=== PATIENT | female | born 1960 | race Caucasian/White ===

== ENCOUNTER → 2024-01-21 | Outpatient (CLI) | payer MEDICARE ==
--- NOTE | 2024-01-22 07:41 | MR ---
EXAMINATION TYPE: MR cspine/tspine wo/w con DATE OF EXAM: 01/21/2024 COMPARISON: None HISTORY: Lung cancer, neck pain, mid back pain. CONTRAST: Performed utilizing 6 mL intravenous Gadavist gadolinium contrast. TECHNIQUE: Multiplanar multiecho imaging on a 3.0 Joaquina magnet is performed through the cervical spin e. FINDINGS: The craniovertebral junction is normal. Vertebral body alignment has mild kyphosis within the upper portion. There is diminished signal within the dens and upper portion of the C2 vertebral body on T1-weighted sequences. This is a heterogenous appearance on T2-weighted sequences. Findings are suspicious for me tastatic lesion. C7-T1: No focal disc herniation or significant disc bulge is evident. No spinal canal stenosis or n eural foraminal stenosis is present. C6-7: Left paracentral to left lateral disc bulge is present with mild anterior thecal sac compressio n. This may contact the exiting nerve root. Correlate with left radicular symptoms. No spinal canal s tenosis is present. Narrowing of the left foramen is present. C5-6: Small left and right paracentral disc bulge is present with mild anterior thecal sac compressio n comes in close approximation with the spinal cord. Bilateral foraminal narrowing is present.. C4-5: Mild central and left paracentral disc bulges are present with mild anterior thecal sac carlito terra. No AP spinal canal stenosis is present. There is close approximation with the spinal cord. Bila teral foraminal stenosis is present. C3-4: There is a small central protrusion with mild anterior thecal sac compression. No spinal canal stenosis is present. No cord contact is evident. Moderate left foraminal narrowing is present. Right foramen is patent. C2-3: Mild central bulge is present without cord contact. This is mild thecal sac compression. Neural foramen are patent. Note is made of a right apical opacification. Following contrast administration there is enhancement through this region. Underlying mass should be considered. IMPRESSION: 1. Abnormal signal within the dens and proximal C2 vertebral body can be compatible with a metastatic lesion. 2. Advanced degenerative disc changes with narrowing of disc height and some residual disc bulging di scussed above. 3. Multilevel Foraminal stenosis. Disc bulging may be impinging the C6-7 left foramen. EXAMINATION TYPE: MR cspine/tspine wo/w con DATE OF EXAM: 01/21/2024 COMPARISON: None HISTORY: Lung cancer, neck pain, mid back pain. CONTRAST: Performed utilizing 6 mL intravenous Gadavist gadolinium contrast. TECHNIQUE: Multiplanar, multiecho imaging on a 3.0 Joaquina magnet is performed through the thoracic spi ne. Spinal cord maintains normal signal through its visualized course. Vertebral body alignment is normal. Vertebral body heights are preserved. Disc heights are preserved. No signal abnormality within the vertebral bodies is evident Disc hydration levels are preserved. No spinal canal stenosis is evident. Following contrast, no abnormal enhancement is evident. Right apical mass is present. IMPRESSION: 1. No acute MRI abnormality within the thoracic spine. 2. Right apical lung mass
== END | disposition home or self-care (01) ==
LOC: RADMRIMAIN 17:06
PROVIDERS: ATTEND Internal Medicine Hematology & Oncology
DX: M99.71 Connective tissue and disc stenosis of intervertebral foramina of cervical region (principal); C34.11 Malignant neoplasm of upper lobe, right bronchus or lung; M50.321 Other cervical disc degeneration at C4-C5 level; M50.31 Other cervical disc degeneration, high cervical region; M50.323 Other cervical disc degeneration at C6-C7 level; M54.50 Low back pain, unspecified; R91.8 Other nonspecific abnormal finding of lung field
CPT/HCPCS: 72156; 72157; A9585

== ENCOUNTER → 2024-06-25 | Outpatient (CLI) | payer MEDICARE ==
--- NOTE | 2024-06-26 09:55 | CA ---
Transthoracic Echo Report Name: Kirti Cohen Age: 64 Gender: F : 1960 Exam Date: 06/25/2024 11:29 Exam Location: [facility] Ht (in): 60 Wt (lb): 132 Ordering Physician: Naomi Cadet MD Attending/Referring Phys: [employer] President Rosaura Gauthier RDCS Procedure CPT: Indications: C34.11 lung ca Cardiac Hx: Technical Quality: Fair Contrast 1: Total Dose (mL): Contrast 2: Total Dose (mL): MEASUREMENTS (Male / Female) Normal Values 2D ECHO LV Diastolic Diameter PLAX 4.9 cm 4.2 - 5.9 / 3.9 - 5.3 cm LV Systolic Diameter PLAX 3.5 cm IVS Diastolic Thickness 0.9 cm 0.6 - 1.0 / 0.6 - 0.9 cm LVPW Diastolic Thickness 0.7 cm 0.6 - 1.0 / 0.6 - 0.9 cm LV Relative Wall Thickness 0.3 RV Internal Dim ED PLAX 3.1 cm LVOT Diameter 1.4 cm LA Volume 62.6 cm??? 18 - 58 / 22 - 52 cm??? LA Volume Index 39.0 cm???/m??? 16 - 28 cm???/m??? M-MODE Aortic Root Diameter MM 2.9 cm LA Systolic Diameter MM 3.7 cm LA Ao Ratio MM 1.3 AV Cusp Separation MM 2.1 cm DOPPLER AV Peak Velocity 153.5 cm/s AV Peak Gradient 9.4 mmHg AV Mean Velocity 108.7 cm/s AV Mean Gradient 5.2 mmHg AV Velocity Time Integral 29.8 cm MV Area PHT 4.4 cm??? Mitral E Point Velocity 107.6 cm/s Mitral A Point Velocity 85.6 cm/s Mitral E to A Ratio 1.3 MV Deceleration Time 170.7 ms MV E' Velocity 10.4 cm/s Mitral E to MV E' Ratio 10.3 TR Peak Velocity 251.7 cm/s TR Peak Gradient 25.3 mmHg Right Ventricular Systolic Press 28.7 mmHg FINDINGS Left Ventricle Normal Left ventricular size, wall thickness, systolic function with no obvious regional wall motion abnormalities. Normal Left ventricular diastolic filling pattern. Left ventricular ejection fraction is estimated at 55-60 %. Normal left heart strain noted. Right Ventricle Normal right ventricular size and function. Right ventricular systolic pressure within normal limits. Right Atrium Normal right atrial size. Left Atrium Mildly increased left atrial volume. Mitral Valve Structurally normal mitral valve. Mild mitral annular calcification. Mild mitral regurgitation. Aortic Valve Trileaflet aortic valve. No aortic valve stenosis or regurgitation. Aortic valve sclerosis. Tricuspid Valve Structurally normal tricuspid valve. Mild tricuspid regurgitation. Pulmonic Valve Structurally normal pulmonic valve. Trace pulmonic regurgitation. Pericardium No pericardial effusion. Aorta Normal size aortic root and proximal ascending aorta. CONCLUSIONS Diagnosis: Lung cancer, baseline LV and RV function prior to chemotherapy and evaluation of pericardium Normal LV size and systolic function, left ventricular ejection fraction 55%. No wall motion abnormalities Normal RV size and function Prominent posterior lateral pericardial stripe consistent with possible pericarditis in the past No pericardial effusion Previewed by: Dr. Dariusz Lara MD (Electronically Signed) Final Date: 26 June 2024 09:53
== END | disposition home or self-care (01) ==
LOC: RADECHMAIN 11:17
PROVIDERS: ATTEND Internal Medicine Hematology & Oncology
DX: Z01.818 Encounter for other preprocedural examination
CPT/HCPCS: 93306

== ENCOUNTER → 2024-07-27 | Outpatient (CLI) | payer MEDICARE ==
--- NOTE | 2024-07-27 16:09 | MR ---
EXAMINATION TYPE: MR brain wo/w con DATE OF EXAM: 07/27/2024 COMPARISON: CT 02/19/2024 HISTORY: 64-year-old female Lung cancer. C34.11 MALIGNANT NEOPLASM OF UPPER LOBE, RIGHT BRO TECHNIQUE: Multiplanar, multisequence images of the brain and brainstem were acquired before and aft er administration of 6 mL IV Gadavist. Diffusion weighted imaging is performed. FINDINGS: No evidence for acute infarction, hemorrhage, mass, mass effect, midline shift, herniation, effacemen t of basal cisterns, or extra-axial fluid collection. The ventricles and sulci are age-appropriate. Asymmetric right lateral ventricle likely anatomic vari ation. Major intracranial flow voids are intact. T2/FLAIR weighted sequences show mild scattered bright signal change in the periventricular, subcorti amy regions of both cerebral hemispheres. Additional foci left paramedian theresa. Findings suggest equity trader nicholas small vessel ischemic disease changes. Midline structures demonstrate normal morphology. The craniocervical junction is normal. Post contrast images demonstrate no evidence of pathologic enhancement. Dural venous sinuses are pat ent. Mild mucosal thickening ethmoid air cells. The globes are intact. Bone marrow placement with corresponding patchy enhancement involving the body of C2 vertebra. IMPRESSION: 1. No acute intracranial abnormality or enhancing lesions to suggest brain metastases. Known bone met astasis to the body of the C2 vertebra. 2. Mild burden of chronic small vessel ischemic disease. 3. Mild chronic ethmoid sinus disease. [facility], , 07/27/2024 4:07 PM
== END | disposition home or self-care (01) ==
LOC: RADMRIMAIN 13:22
PROVIDERS: ATTEND Internal Medicine Hematology & Oncology
CPT/HCPCS: 70553

== ENCOUNTER → 2024-09-04 | Outpatient (CLI) | payer MEDICARE ==
[2024-09-04 15:32] LABS: HCT 27.5 % (37.2-46.3); HGB 8.6 g/dL (12.0-15.0); MCH 27.7 pg (27.0-32.0); MCHC 31.3 g/dL (32.0-37.0); MCV 88.4 FL (80.0-97.0); Mean Platelet Volume 8.2 FL (9.5-12.2); NRBC Per 100 WBC 0 X 10*3/uL (0.00-0.01); Platelet Count 537 X 10*3/uL (140-440); RBC 3.11 X 10*6/uL (4.10-5.20); RDW 15.6 % (11.5-14.5); WBC 17.27 X 10*3/uL (4.50-10.00)
[2024-09-04 15:47] LABS: ALT 13 U/L (8-44); AST 23 U/L (13-35); Albumin 3.3 g/dL (3.8-4.9); Albumin/Globulin Ratio 1.06 Ratio (1.60-3.17); Alkaline Phosphatase 132 U/L (41-126); BUN/Creat Ratio 20.12 Ratio (12.00-20.00); Blood Urea Nitrogen 16.1 mg/dL (9.0-27.0); Calcium 9.1 mg/dL (8.7-10.3); Carbon Dioxide 22.1 mmol/L (21.6-31.8); Chloride 97 mmol/L (96-109); Chol/HDL Ratio 3.84 Ratio; Globulin 3.1 g/dL (1.6-3.3); Glucose 92 mg/dL (70-110); LDL Cholesterol,Calculated 85.5 mg/dL (0.0-131.0); Potassium 4.3 mmol/L (3.5-5.5); Sodium 133 mmol/L (135-145); Total Bilirubin 0.8 mg/dL (0.3-1.2); Total Protein 6.4 g/dL (6.2-8.2); VLDL Calculation 18.78 mg/dL (5.00-40.00)
[2024-09-04 19:16] LABS: NT-Pro-B-Type Natriuretic Pept 161 pg/mL (0-125)
== END | disposition home or self-care (01) ==
LOC: LABWHC1 09:08
PROVIDERS: ATTEND Student in an Organized Health Care Education/Training Program
DX: D72.9 Disorder of white blood cells, unspecified (principal); R79.89 Other specified abnormal findings of blood chemistry; E11.9 Type 2 diabetes mellitus without complications; E78.5 Hyperlipidemia, unspecified; Z13.6 Encounter for screening for cardiovascular disorders; E03.9 Hypothyroidism, unspecified
CPT/HCPCS: 36415; 80053; 80061; 83036; 83880; 84443; 84484; 85027

== ENCOUNTER 2024-10-06 10:36 | Emergency (ER) | payer MEDICARE ==
--- NOTE | 2024-10-06 11:08 | ED ---
Recheck HPI - General Chief Complaint: Recheck/Abnormal Lab/Rx Stated Complaint: abn labs Time Seen by Provider: 10/06/24 11:00 Source: patient, RN notes reviewed Mode of arrival: ambulatory Limitations: no limitations - History of Present Illness Initial Comments: This is a 64-year-old female with stage IV lung cancer currently on chemo infusion, follows with Dr. Cadet, presented to emergency department for abnormal labs. Patient states that she had lab work drawn yesterday which revealed a hemoglobin of 6.2. She states that over the past week she has been experiencing dyspnea on exertion, fatigue, lethargy. She denies chest pain, shortness of br eath, difficulty breathing, abdominal pain, nausea, vomiting. Denies melena, hematochezia, hematuria, hematemesis or coffee-ground emesis. States that she has frequent blood draws with her oncologist outpatient and her hemoglobin has been trending downward. Denies previous history of blood transfusions. Patient does receive intermittent radiation for her lung cancer treatment. - Related Data Allergies Allergy/AdvReac Type Severity Reaction Status Date / Time No Known Allergies Allergy Verified 10/06/24 10:52 Review of Systems ROS Statement: Those systems with pertinent positive or pertinent negative responses have been documented in the HPI. ROS Other: All systems not noted in ROS Statement are negative. Past Medical History Past Medical History: Cancer Additional Past Medical History / Comment(s): Lung Ca Additional Past Surgical History / Comment(s): Netta 2004 Smoking Status: Former smoker Past Alcohol Use History: None Reported Past Drug Use History: Marijuana General Exam Limitations: no limitations Eye exam: Present: normal appearance, PERRL, EOMI. Absent: scleral icterus, conjunctival injection, periorbital swelling Neck exam: Present: normal inspection. Absent: tenderness, meningismus, lymphadenopathy Respiratory exam: Present: normal lung sounds bilaterally. Absent: respiratory distress, wheezes, rales, rhonchi, stridor Cardiovascular Exam: Present: regular rate, normal rhythm, normal heart sounds. Absent: systolic murmur, diastolic murmur, rubs, gallop, clicks GI/Abdominal exam: Present: soft, normal bowel sounds. Absent: distended, tenderness, guarding, rebound, rigid Extremities exam: Present: normal inspection, full ROM, normal capillary refill. Absent: tenderness, pedal edema, joint swelling, calf tenderness Skin exam: Present: warm, dry, intact, normal color. Absent: rash Course Vital Signs 10/06/24 10/06/24 10/06/24 10:52 13:54 13:57 Temperature 98.5 F 99.3 F 99.3 F Pulse Rate 92 87 79 Respiratory 18 18 18 Rate Blood Pressure 103/62 119/67 105/84 O2 Sat by Pulse 100 99 99 Oximetry 10/06/24 10/06/24 10/06/24 14:12 14:32 15:48 Temperature 99 F 99.3 F 98.9 F Pulse Rate 78 78 80 Respiratory 18 20 18 Rate Blood Pressure 103/56 101/49 98/55 O2 Sat by Pulse 98 98 Oximetry Medical Decision Making - Medical Decision Making Was pt. sent in by a medical professional or institution ([facility], [facility], urgent care, hospital, or group home...) When possible be specific @ -No Did you speak to anyone other than the patient for history (EMS, parent, family, police, friend...)? What history was obtained from this source @ -No Did you review nursing and triage notes (agree or disagree)? Why? @ -I reviewed and agree with nursing and triage notes Were old charts reviewed (outside hosp., previous admission, EMS record, old EKG, old radiological studies, urgent care reports/EKG's, group home records)? Report findings @ -No old charts were reviewed Differential Diagnosis (chest pain, altered mental status, abdominal pain women, abdominal pain men, vaginal bleeding, weakness, fever, dyspnea, syncope, headache, dizziness, GI bleed, back pain, seizure, CVA, palpatations, mental hea lth, musculoskeletal)? @ -Differential Weakness: Hypoglycemia, shock, sepsis, hyponatremia, anemia, infection, [place], ETOH, adverse medicine reaction, overdose, stroke, this is not meant to be an all-inclusive list. EKG interpreted by me (3pts min.). @ -Completed at 1131 sinus rhythm with a ventricular to 76, IN interval 133, QRS 81, QTc 369. X-rays interpreted by me (1pt min.). @ -None done CT interpreted by me (1pt min.). @ -None done U/S interpreted by me (1pt. min.). @ -None done What testing was considered but not performed or refused? (CT, X-rays, U/S, labs)? Why? @ -None What meds were considered but not given or refused? Why? @ -None Did you discuss the management of the patient with other professionals (professionals i.e. , PA, PR[employer]CTION [facility], lab, RT, psych nurse, social service director, corporate safety manager, te acher, commercial credit officer, immigration case worker)? Give summary @ -No Was smoking cessation discussed for >3mins.? @ -No Was critical care preformed (if so, how long)? @ -No Were there social determinants of health that impacted care today? How? (Homelessness, low income, unemployed, alcoholism, drug addiction, transportation, low edu. Level, literacy, decrease access to med. care, [facility], rehab)? @ -No Was there de-escalation of care discussed even if they declined (Discuss DNR or withdrawal of care, Hospice)? DNR status @ -No What co-morbidities impacted this encounter? (DM, HTN, Smoking, COPD, CAD, Cancer, CVA, ARF, Chemo, Hep., AIDS, mental health diagnosis, sleep apnea, morbid obesity)? @ -None Was patient admitted / discharged? Hospital course, mention meds given and route, prescriptions, significant lab abnormalities, going to OR and other pertinent info. @ -Discharge. 64-year-old female presenting with abnormal labs. Laboratory studies obtained reveal a hemoglobin of 6.8 and Hematocrit 20.9. CMP within normal limits. EKG sinus rhythm. There is no concern for active bleed at this time as there is no evidence of hematochezia, melena, hematemesis, coffee-ground emesis, hematuria. Patient is on blood thinners. Additionally, patient has had downward trending hemoglobin over the past few weeks has follow-up with her oncologist outpatient. She is provided with 1 unit of blood and instructed to follow-up closely with oncologist outpatient for continued evaluation. Discuss ed with Dr. Perkins Undiagnosed new problem with uncertain prognosis? @ -No Drug Therapy requiring intensive monitoring for toxicity (Heparin, Nitro, Insulin, Cardizem)? @ -No Were any procedures done? @ -No Diagnosis/symptom? @ -anemia of chronic disease, stage IV lung cancer Acute, or Chronic, or Acute on Chronic? @ -acute Uncomplicated (without systemic symptoms) or Complicated (systemic symptoms)? @ -uncomplicated Side effects of treatment? @ -No Exacerbation, Progression, or Severe Exacerbation? @ -No Poses a threat to life or bodily function? How? (Chest pain, [place], [place], pneumonia, PE, COPD, DKA, ARF, appy, cholecystitis, CVA, Diverticulitis, Homicidal, Suicidal, threat to staff... and all critical care pts) @ -No - Lab Data Result diagrams: 10/06/24 11:26 10/06/24 11:26 Lab Results 10/06/24 10/06/24 10/06/24 Range/Units 11:20 11:25 11:26 WBC 8.7 (3.8-10.6) k/uL RBC 2.27 L (3.80-5.40) m/uL Hgb 6.8 L* (11.4-16.0) gm/dL Hct 20.9 L (34.0-46.0) % MCV 92.1 (80.0-100.0) fL MCH 29.9 (25.0-35.0) pg MCHC 32.4 (31.0-37.0) g/dL RDW 19.9 H (11.5-15.5) % Plt Count 355 (150-450) k/uL MPV 8.2 Neutrophils % 75 % Lymphocytes % 13 % Monocytes % 6 % Eosinophils % 4 % Basophils % 0 % Neutrophils # 6.5 (1.3-7.7) k/uL Lymphocytes # 1.1 (1.0-4.8) k/uL Monocytes # 0.6 (0-1.0) k/uL Eosinophils # 0.3 (0-0.7) k/uL Basophils # 0.0 (0-0.2) k/uL Hypochromasia Slight Anisocytosis Slight Macrocytosis Slight PT (10.0-12.5) sec INR (<1.2) APTT (22.0-30.0) sec Sodium (137-145) mmol/L Potassium (3.5-5.1) mmol/L Chloride (98-107) mmol/L Carbon Dioxide (22-30) mmol/L Anion Gap mmol/L BUN (7-17) mg/dL Creatinine (0.52-1.04) mg/dL Est GFR (CKD-EPI)AfAm (>60 ml/min/1.73 sqM) Est GFR (CKD-EPI)NonAf (>60 ml/min/1.73 sqM) Glucose (74-99) mg/dL Calcium (8.4-10.2) mg/dL Magnesium (1.6-2.3) mg/dL Total Bilirubin (0.2-1.3) mg/dL AST (14-36) U/L ALT (4-34) U/L Alkaline Phosphatase (38-126) U/L Total Protein (6.3-8.2) g/dL Albumin (3.5-5.0) g/dL Blood Type A Positive Blood Type Confirm A Positive Blood Type Recheck No Previous Record Bld Type Recheck Status CABO Indicated Antibody Screen NEGATIVE Crossmatch See Detail Spec Expiration Date 10/09/2024 - 232510/06/24 10/06/24 Range/Units 11:26 11:26 WBC (3.8-10.6) k/uL RBC (3.80-5.40) m/uL Hgb (11.4-16.0) gm/dL Hct (34.0-46.0) % MCV (80.0-100.0) fL MCH (25.0-35.0) pg MCHC (31.0-37.0) g/dL RDW (11.5-15.5) % Plt Count (150-450) k/uL MPV Neutrophils % % Lymphocytes % % Monocytes % % Eosinophils % % Basophils % % Neutrophils # (1.3-7.7) k/uL Lymphocytes # (1.0-4.8) k/uL Monocytes # (0-1.0) k/uL Eosinophils # (0-0.7) k/uL Basophils # (0-0.2) k/uL Hypochromasia Anisocytosis Macrocytosis PT 12.2 (10.0-12.5) sec INR 1.1 (<1.2) APTT 24.6 (22.0-30.0) sec Sodium 136 L (137-145) mmol/L Potassium 3.7 (3.5-5.1) mmol/L Chloride 99 (98-107) mmol/L Carbon Dioxide 25 (22-30) mmol/L Anion Gap 12 mmol/L BUN 11 (7-17) mg/dL Creatinine 0.78 (0.52-1.04) mg/dL Est GFR (CKD-EPI)AfAm >90 (>60 ml/min/1.73 sqM) Est GFR (CKD-EPI)NonAf 80 (>60 ml/min/1.73 sqM) Glucose 107 H (74-99) mg/dL Calcium 9.2 (8.4-10.2) mg/dL Magnesium 2.0 (1.6-2.3) mg/dL Total Bilirubin 0.3 (0.2-1.3) mg/dL AST 13 L (14-36) U/L ALT 10 (4-34) U/L Alkaline Phosphatase 89 (38-126) U/L Total Protein 6.5 (6.3-8.2) g/dL Albumin 3.5 (3.5-5.0) g/dL Blood Type Blood Type Confirm Blood Type Recheck Bld Type Recheck Status Antibody Screen Crossmatch Spec Expiration Date Disposition Clinical Impression: Anemia, Low hemoglobin Disposition: HOME SELF-CARE Condition: Stable Instructions (If sedation given, give patient instructions): Anemia (ED) Additional Instructions: Please return to the Emergency Department if symptoms worsen or any other concerns. Is patient prescribed a controlled substance at d/c from ED?: No Referrals: Naomi Cadet MD [Primary Care Provider] - 1-2 days
[2024-10-06 11:32] LABS: Anisocytosis Slight; Basophils % (A) 0 %; Eosinophils # (A) 0.3 k/uL (0-0.7); Eosinophils % (A) 4 %; HCT 20.9 % (34.0-46.0); Hypochromasia Slight; Lymphocytes # (A) 1.1 k/uL (1.0-4.8); Lymphocytes % (A) 13 %; MCH 29.9 pg (25.0-35.0); MCHC 32.4 g/dL (31.0-37.0); MCV 92.1 fL (80.0-100.0); Macrocytosis Slight; Mean Platelet Volume 8.2; Monocytes # (A) 0.6 k/uL (0-1.0); Monocytes % (A) 6 %; Neutrophils # (A) 6.5 k/uL (1.3-7.7); Neutrophils % (A) 75 %; Platelet Count 355 k/uL (150-450); RBC 2.27 m/uL (3.80-5.40); RDW 19.9 % (11.5-15.5); WBC 8.7 k/uL (3.8-10.6)
[2024-10-06 11:40] LABS: HGB 6.8 gm/dL (11.4-16.0)
[2024-10-06 11:44] LABS: INR 1.1 (<1.2); Partial Thromboplastin Time 24.6 sec (22.0-30.0); Prothrombin Time 12.2 sec (10.0-12.5)
[2024-10-06 12:10] LABS: ALT 10 U/L (4-34); AST 13 U/L (14-36); African American GFR (CKD) >90 (>60 ml/min/1.73 sqM); Albumin 3.5 g/dL (3.5-5.0); Alkaline Phosphatase 89 U/L (38-126); Anion Gap 12 mmol/L; Blood Urea Nitrogen 11 mg/dL (7-17); Calcium 9.2 mg/dL (8.4-10.2); Carbon Dioxide 25 mmol/L (22-30); Chloride 99 mmol/L (98-107); Glucose 107 mg/dL (74-99); Non-African American GFR(CKD) 80 (>60 ml/min/1.73 sqM); Potassium 3.7 mmol/L (3.5-5.1); Sodium 136 mmol/L (137-145); Total Bilirubin 0.3 mg/dL (0.2-1.3); Total Protein 6.5 g/dL (6.3-8.2)
[2024-10-06 16:40] VITALS: BP 100/64
[2024-10-06 16:48] VITALS: PULSE 78; RESP 18; TEMP 99
== END 2024-10-06 16:46 | disposition home or self-care (01) ==
LOC: EC 10:36
DX: C34.90 Malignant neoplasm of unspecified part of unspecified bronchus or lung (principal); D63.0 Anemia in neoplastic disease; Z87.891 Personal history of nicotine dependence
CPT/HCPCS: 99284 ×2; 36430 ×2; 36415; 93005; 86900; 86901; 80053; 83735; 85025; 85610; 85730; 86850; 86920; P9016

== ENCOUNTER 2024-10-21 12:23 | Emergency (ER) | payer MEDICARE ==
--- NOTE | 2024-10-21 13:24 | XR ---
Chest, 2 view. HISTORY: Cough. COMPARISON: 06/19/2024 TECHNIQUE: PA and lateral views the chest are obtained. FINDINGS: The right upper lobe lung mass has increased in the interval from 5.7 x 6.9 centimeters to 6.2 x 7.5 cm. It is consistent with malignancy. Remainder of the lungs are stable and remain essentially clear. There is no pleural effusion or pneum othorax. The heart and vasculature are normal. The osseous structures are intact. IMPRESSION: Growing right upper lobe lung mass as described above. Findings highly suspicious for tejas plasm. [facility], , 10/21/2024 1:22 PM
--- NOTE | 2024-10-21 13:49 | ED ---
Fever HPI - General Chief Complaint: Fever Stated Complaint: coughing, wheezing, fever Time Seen by Provider: 10/21/24 12:40 Source: patient, RN notes reviewed Mode of arrival: ambulatory Limitations: no limitations - History of Present Illness Initial Comments: This is a 64-year-old female with history of lung cancer presenting with fever, chills, cough and wheezing starting last night. Patient endorses taking Advil and narcotics this morning with resolution of fever/chills upon ER arrival. Patient endorses ongoing wet cough and wheezing without dyspnea/SOB. Denies chest pain, hemoptysis, abdominal pain, N/V/D. MD Complaint: fever Onset/Timin -: days(s) Temperature Source: oral Associated Symptoms: chills, cough Treatments Prior to Arrival: Ibuprofen - Related Data Previous Rx's Medication Instructions Recorded Albuterol Inhaler [Ventolin Hfa 1 - 2 puff INHALATION Q6H PRN #1 10/21/24 Inhaler] each Azithromycin [Zithromax Z Pack] 1 tab PO DIRECTED #6 tab 10/21/24 predniSONE 50 mg PO DAILY #5 tab 10/21/24 Allergies Allergy/AdvReac Type Severity Reaction Status Date / Time No Known Allergies Allergy Verified 10/21/24 12:30 Review of Systems ROS Statement: Those systems with pertinent positive or pertinent negative responses have been documented in the HPI. ROS Other: All systems not noted in ROS Statement are negative. Past Medical History Past Medical History: Cancer Additional Past Medical History / Comment(s): Lung Ca Additional Past Surgical History / Comment(s): Nteta 2004 Past Psychological History: No Psychological Hx Reported Smoking Status: Former smoker Past Alcohol Use History: None Reported Past Drug Use History: Marijuana General Exam Limitations: no limitations General appearance: alert, in no apparent distress Head exam: Present: atraumatic, normocephalic, normal inspection Eye exam: Present: normal appearance, PERRL, EOMI. Absent: scleral icterus, conjunctival injection, periorbital swelling ENT exam: Present: normal exam, mucous membranes moist Neck exam: Present: normal inspection. Absent: tenderness, meningismus, lymphadenopathy Respiratory exam: Present: wheezes, decreased breath sounds, prolonged expiratory. Absent: respiratory distress, rales, rhonchi, stridor Cardiovascular Exam: Present: regular rate, normal rhythm, normal heart sounds. Absent: systolic murmur, diastolic murmur, rubs, gallop, clicks GI/Abdominal exam: Present: soft, normal bowel sounds. Absent: distended, tenderness, guarding, rebound, rigid Extremities exam: Present: normal inspection, full ROM, normal capillary refill. Absent: tenderness, pedal edema, joint swelling, calf tenderness Back exam: Present: normal inspection Neurological exam: Present: alert, oriented X3, CN II-XII intact Psychiatric exam: Present: normal affect, normal mood Skin exam: Present: warm, dry, intact, normal color. Absent: rash Course Vital Signs 10/21/24 10/21/24 12:28 15:00 Temperature 98.5 F 98.5 F Pulse Rate 116 H 82 Respiratory 16 18 Rate Blood Pressure 119/72 122/70 O2 Sat by Pulse 99 97 Oximetry Medical Decision Making - Medical Decision Making Was pt. sent in by a medical professional or institution (, PA, STAY CUTTER, urgent ca re, hospital, or skilled nursing...) When possible be specific @ -[No] Did you speak to anyone other than the patient for history (EMS, parent, family, police, friend...)? What history was obtained from this source @ -[No] Did you review nursing and triage notes (agree or disagree)? Why? @ -[I reviewed and agree with nursing and triage notes] Were old charts reviewed (outside hosp., previous admission, EMS record, old EKG, old radiological studies, urgent care reports/EKG's, skilled nursing records)? Report findings @ -[No old charts were reviewed] Differential Diagnosis (chest pain, altered mental status, abdominal pain women, abdominal pain men, vaginal bleeding, weakness, fever, dyspnea, syncope, headache, dizziness, GI bleed, back pain, seizure, CVA, palpatations, mental health, musculoskeletal)? @ -Differential Fever: Pneumonia, viral URI, endocarditis, myocarditis, pericarditis, otitis, sinusitis, peritonsillar Abscess, retropharyngeal Abscess, epiglottitis, peritonitis, appendicitis, Kari cystitis, diverticulitis, hepatitis, colitis, UTI, PID, TOA, pyelonephritis, prostatitis, epididymitis, meningitis, encephalitis, pulmonary embolism, CVA, thyroid storm, pancreatitis, adrenal crisis, cavernous sinus thrombosis, this is not meant to be an all-inclusive list. EKG interpreted by me (3pts min.). @ -Not done X-rays interpreted by me (1pt min.). @ -[None done] CT interpreted by me (1pt min.). @ -[None done] U/S interpreted by me (1pt. min.). @ -[None done] What testing was considered but not performed or refused? (CT, X-rays, U/S, labs)? Why? @ -[None] What meds were considered but not given or refused? Why? @ -[None] Did you discuss the management of the patient with other professionals (professionals i.e. , PA, STAY CUTTER, lab, RT, psych nurse, social welfare research worker, field technician, te acher, special weapons and tactics officer, bottle caser)? Give summary @ -[No] Was smoking cessation discussed for >3mins.? @ -[No] Was critical care preformed (if so, how long)? @ -[No] Were there social determinants of health that impacted care today? How? (Homelessness, low income, unemployed, alcoholism, drug addiction, transportation, low edu. Level, literacy, decrease access to med. care, [facility], rehab)? @ -[No] Was there de-escalation of care discussed even if they declined (Discuss DNR or withdrawal of care, Hospice)? DNR status @ -[No] What co-morbidities impacted this encounter? (DM, HTN, Smoking, COPD, CAD, Cancer, CVA, ARF, Chemo, Hep., AIDS, mental health diagnosis, sleep apnea, morbid obesity)? @ -Lung CA Was patient admitted / discharged? Hospital course, mention meds given and route, prescriptions, significant lab abnormalities, going to OR and other pertinent info. @ -[hospital course] Undiagnosed new problem with uncertain prognosis? @ -[No] Drug Therapy requiring intensive monitoring for toxicity (Heparin, Nitro, Insulin, Cardizem)? @ -[No] Were any procedures done? @ -[No] Diagnosis/symptom? @ -[default] Acute, or Chronic, or Acute on Chronic? @ -Acute Uncomplicated (without systemic symptoms) or Complicated (systemic symptoms)? @ -Complicated Side effects of treatment? @ -[No] Exacerbation, Progression, or Severe Exacerbation? @ -[No] Poses a threat to life or bodily function? How? (Chest pain, USA, MA, pneumonia, PE, COPD, DKA, ARF, appy, cholecystitis, CVA, Diverticulitis, Homicidal, Suicidal, threat to staff... and all critical care pts) @ -[No] - Lab Data Result diagrams: 10/21/24 14:20 10/21/24 14:20 Lab Results 10/21/24 10/21/24 10/21/24 Range/Units 14:20 14:20 14:20 WBC 4.2 (3.8-10.6) k/uL RBC 2.68 L (3.80-5.40) m/uL Hgb 8.2 L (11.4-16.0) gm/dL Hct 24.9 L (34.0-46.0) % MCV 93.0 (80.0-100.0) fL MCH 30.7 (25.0-35.0) pg MCHC 33.1 (31.0-37.0) g/dL RDW 16.4 H (11.5-15.5) % Plt Count 145 L D (150-450) k/uL MPV 7.3 Neutrophils % (Manual) 64 % Lymphocytes % (Manual) 26 % Monocytes % (Manual) 7 % Eosinophils % (Manual) 3 % Neutrophils # (Manual) 2.69 (1.3-7.7) k/uL Lymphocytes # (Manual) 1.09 (1.0-4.8) k/uL Monocytes # (Manual) 0.29 (0-1.0) k/uL Eosinophils # (Manual) 0.13 (0-0.7) k/uL Nucleated RBCs 0 (0-0) /100 WBC Manual Slide Review Performed Hypersegmented Neuts Present Hypochromasia Slight Anisocytosis Slight Sodium 133 L (137-145) mmol/L Potassium 5.0 (3.5-5.1) mmol/L Chloride 98 (98-107) mmol/L Carbon Dioxide 24 (22-30) mmol/L Anion Gap 11 mmol/L BUN 16 (7-17) mg/dL Creatinine 0.83 (0.52-1.04) mg/dL Est GFR (CKD-EPI)AfAm 85 (>60 ml/min/1.73 sqM) Est GFR (CKD-EPI)NonAf 74 (>60 ml/min/1.73 sqM) Glucose 117 H (74-99) mg/dL Plasma Lactic Acid Alejandro 1.6 (0.7-2.0) mmol/L Calcium 9.4 (8.4-10.2) mg/dL Total Bilirubin 1.1 (0.2-1.3) mg/dL AST 28 (14-36) U/L ALT 19 (4-34) U/L Alkaline Phosphatase 101 (38-126) U/L Total Protein 7.1 (6.3-8.2) g/dL Albumin 3.4 L (3.5-5.0) g/dL Influenza Type A (PCR) (Not Detectd) Influenza Type B (PCR) (Not Detectd) RSV (PCR) (Not Detectd) SARS-CoV-2 (PCR) (Not Detectd) 10/21/24 Range/Units 14:45 WBC (3.8-10.6) k/uL RBC (3.80-5.40) m/uL Hgb (11.4-16.0) gm/dL Hct (34.0-46.0) % MCV (80.0-100.0) fL MCH (25.0-35.0) pg MCHC (31.0-37.0) g/dL RDW (11.5-15.5) % Plt Count (150-450) k/uL MPV Neutrophils % (Manual) % Lymphocytes % (Manual) % Monocytes % (Manual) % Eosinophils % (Manual) % Neutrophils # (Manual) (1.3-7.7) k/uL Lymphocytes # (Manual) (1.0-4.8) k/uL Monocytes # (Manual) (0-1.0) k/uL Eosinophils # (Manual) (0-0.7) k/uL Nucleated RBCs (0-0) /100 WBC Manual Slide Review Hypersegmented Neuts Hypochromasia Anisocytosis Sodium (137-145) mmol/L Potassium (3.5-5.1) mmol/L Chloride (98-107) mmol/L Carbon Dioxide (22-30) mmol/L Anion Gap mmol/L BUN (7-17) mg/dL Creatinine (0.52-1.04) mg/dL Est GFR (CKD-EPI)AfAm (>60 ml/min/1.73 sqM) Est GFR (CKD-EPI)NonAf (>60 ml/min/1.73 sqM) Glucose (74-99) mg/dL Plasma Lactic Acid Alejandro (0.7-2.0) mmol/L Calcium (8.4-10.2) mg/dL Total Bilirubin (0.2-1.3) mg/dL AST (14-36) U/L ALT (4-34) U/L Alkaline Phosphatase (38-126) U/L Total Protein (6.3-8.2) g/dL Albumin (3.5-5.0) g/dL Influenza Type A (PCR) Not Detected (Not Detectd) Influenza Type B (PCR) Not Detected (Not Detectd) RSV (PCR) Not Detected (Not Detectd) SARS-CoV-2 (PCR) Not Detected (Not Detectd) Disposition Clinical Impression: Tracheobronchitis Disposition: HOME SELF-CARE Condition: Good Instructions (If sedation given, give patient instructions): Acute Bronchitis (ED) Additional Instructions: Follow-up with oncologist regarding growing pulmonary neoplasm. OTC Mucinex for chest congestion. Prescriptions: predniSONE 50 mg PO DAILY #5 tab Albuterol Inhaler [Ventolin Hfa Inhaler] 1 - 2 puff INHALATION Q6H PRN #1 each PRN Reason: Shortness Of Breath Azithromycin [Zithromax Z Pack] 1 tab PO DIRECTED #6 tab Is patient prescribed a controlled substance at d/c from ED?: No Referrals: Ashvin Curry MD [Primary Care Provider] - 1-2 days Time of Disposition: 15:40
[2024-10-21] MEDS: methylPREDNISolone SOD SUCCI 125 MG/2 ML VIAL IV STA (14:29)
[2024-10-21 15:10] LABS: Anisocytosis Slight; HCT 24.9 % (34.0-46.0); HGB 8.2 gm/dL (11.4-16.0); Hypochromasia Slight; MCH 30.7 pg (25.0-35.0); MCHC 33.1 g/dL (31.0-37.0); Mean Platelet Volume 7.3; RBC 2.68 m/uL (3.80-5.40); RDW 16.4 % (11.5-15.5); WBC 4.2 k/uL (3.8-10.6)
[2024-10-21 15:11] LABS: ALT 19 U/L (4-34); AST 28 U/L (14-36); African American GFR (CKD) 85 (>60 ml/min/1.73 sqM); Albumin 3.4 g/dL (3.5-5.0); Alkaline Phosphatase 101 U/L (38-126); Anion Gap 11 mmol/L; Blood Urea Nitrogen 16 mg/dL (7-17); Calcium 9.4 mg/dL (8.4-10.2); Carbon Dioxide 24 mmol/L (22-30); Chloride 98 mmol/L (98-107); Non-African American GFR(CKD) 74 (>60 ml/min/1.73 sqM); Sodium 133 mmol/L (137-145); Total Bilirubin 1.1 mg/dL (0.2-1.3); Total Protein 7.1 g/dL (6.3-8.2)
[2024-10-21 15:18] LABS: Platelet Count 145 k/uL (150-450)
[2024-10-21 15:25] LABS: Glucose 117 mg/dL (74-99)
[2024-10-21 15:35] LABS: Influenza A Not Detected (Not Detectd); Influenza B Not Detected (Not Detectd); RSV Not Detected (Not Detectd)
[2024-10-21 15:43] LABS: Eosinophils # (M) 0.13 k/uL (0-0.7); Lymphocytes # (M) 1.09 k/uL (1.0-4.8); Monocytes # (M) 0.29 k/uL (0-1.0); Neutrophils # (M) 2.69 k/uL (1.3-7.7); Neutrophils % (M) 64 %; Nucleated Red Blood Cells 0 /100 WBC (0-0); Total Cells Counted 100
[2024-10-21 15:46] LABS: Hypersegmented Neutrophils Present
[2024-10-21] MEDS: IPRATROPIUM-ALBUTEROL 3 ML NEB INHALATION STA (16:01)
[2024-10-21 16:14] VITALS: BP 111/72; PULSE 83; RESP 16; TEMP 98
== END 2024-10-21 16:13 | disposition home or self-care (01) ==
LOC: EC 12:23
DX: J40 Bronchitis, not specified as acute or chronic (principal); Z87.891 Personal history of nicotine dependence; Z85.118 Personal history of other malignant neoplasm of bronchus and lung
CPT/HCPCS: 36415; 94640; 80053; 83605; 85025; 87636; 71046; 99284; 96374; J2919

== ENCOUNTER 2024-11-23 12:52 | Inpatient (IN) | payer MEDICARE ==
[2024-11-23 13:13] LABS: Glucose,Whole Blood 148 mg/dL (70-110)
--- NOTE | 2024-11-23 13:13 | ED ---
General Adult HPI - General Source: patient, family Mode of arrival: wheelchair Limitations: altered mental status <Mena Hernandez - Last Filed: 11/23/24 13:12> <Umer Branch - Last Filed: 12/06/24 07:07> - General Stated complaint: AMS Time Seen by Provider: 11/23/24 13:12 - History of Present Illness Initial comments: 64-year-old female presenting with chief complaint of altered mental status. She is accompanied by her . Patient also experiencing hypotension and tachycardia. states that her altered mental status has been ongoing for about 3 to 4 days but has significantly worsened over the past 2 (Mena Hernandez) - Related Data Home Medications Medication Instructions Recorded Confirmed Albuterol Inhaler [Ventolin Hfa 1 - 2 puff INHALATION RT-Q6H PRN 11/06/24 11/24/24 Inhaler] Codeine 30 mg PO Q8H PRN 11/06/24 11/24/24 Docusate [Colace] 100 mg PO DAILY 11/06/24 11/24/24 Folic Acid 1 mg PO DAILY 11/06/24 11/24/24 Ondansetron [Zofran] 4 mg PO Q4H PRN 11/06/24 11/24/24 oxyCODONE HCL [oxyCODONE HCL (IR)] 15 - 30 mg PO Q4H PRN 11/06/24 11/24/24 polyethylene glycoL 3350 [Miralax] 17 gm PO DAILY 11/06/24 11/24/24 Gabapentin 300 mg PO TID 11/24/24 11/24/24 oxyCODONE HCL [OxyCONTIN] 30 mg PO BID 11/24/24 11/24/24 Previous Rx's Medication Instructions Recorded Ipratropium-Albuterol Nebulize 3 ml INHALATION QID 30 Days #120 ml 11/13/24 [Duoneb 0.5 mg-3 mg/3 ml Soln] Metoprolol Succinate (ER) [Toprol 50 mg PO BID 30 Days #60 tab 11/13/24 XL] Allergies Allergy/AdvReac Type Severity Reaction Status Date / Time No Known Allergies Allergy Verified 11/24/24 08:40 Review of Systems ROS Other: All systems not noted in ROS Statement are negative. <Mena Hernandez - Last Filed: 11/23/24 13:12> ROS Other: All systems not noted in ROS Statement are negative. <Umer Branch - Last Filed: 12/06/24 07:07> ROS Statement: Those systems with pertinent positive or pertinent negative responses have been documented in the HPI. Past Medical History Past Medical History: Cancer Additional Past Medical History / Comment(s): Pulmonary adenocarcinoma, rheumatoid arthritis History of Any Multi-Drug Resistant Organisms: None Reported Additional Past Surgical History / Comment(s): Lasik Past Anesthesia/Blood Transfusion Reactions: No Reported Reaction Past Psychological History: No Psychological Hx Reported Smoking Status: Former smoker Past Alcohol Use History: None Reported Past Drug Use History: Marijuana Additional Drug Use History / Comment(s): patient states she takisn marijuana gummies to help with pain/sleep <MaryJahdede - Last Filed: 11/23/24 13:12> - Past Family History Mother Family Medical History: Cancer <Umer Branch - Last Filed: 12/06/24 07:07> General Exam <Mena Hernandez - Last Filed: 11/23/24 13:12> Limitations: altered mental status General appearance: other (Patient is somnolent but arouses to voice.) Head exam: Present: atraumatic, normocephalic Eye exam: Present: normal appearance. Absent: scleral icterus, conjunctival injection ENT exam: Present: mucous membranes dry Neck exam: Present: normal inspection, full ROM. Absent: tenderness Respiratory exam: Present: normal lung sounds bilaterally. Absent: respiratory distress, wheezes, rales, rhonchi, stridor, accessory muscle use Cardiovascular Exam: Present: normal rhythm, tachycardia, normal heart sounds. Absent: systolic murmur, diastolic murmur, rubs, gallop GI/Abdominal exam: Present: soft. Absent: distended, tenderness, guarding, rebound, rigid, mass, pulsatile mass Extremities exam: Present: normal inspection, normal capillary refill. Absent: pedal edema, calf tenderness Back exam: Present: normal inspection. Absent: CVA tenderness (R), CVA tenderness (L) Neurological exam: Present: altered, CN II-XII intact, other (Patient is somnolent but arouses to voice. She is able to follow simple one-step commands but not able to fully cooperate with neurologic exam. Patient oriented to person and place disoriented to time). Absent: oriented X3, motor sensory deficit Skin exam: Present: warm, dry, intact, normal color. Absent: rash <Umer Branch - Last Filed: 12/06/24 07:07> - General Exam Comments Initial Comments: Visual Physical Exam Vital signs reviewed General: nontoxic, no acute distress. Head: Normocephalic, atraumatic Eyes: PERRLA, EOMI ENT: Airway patent Chest: Nonlabored breathing Skin: No visual rash, normal skin tone Neuro: Alert Musculoskeletal: No gross abnormalities (Mena Hernandez) Course Vital Signs 11/23/24 11/23/24 11/23/24 13:06 20:30 21:00 Temperature 98.6 F Pulse Rate 124 H 101 H 100 Respiratory 18 20 18 Rate Blood Pressure 91/63 101/56 93/52 O2 Sat by Pulse 94 L 97 94 L Oximetry 11/23/24 11/23/24 11/23/24 22:30 23:20 23:30 Temperature Pulse Rate 89 83 84 Respiratory 18 20 18 Rate Blood Pressure 81/56 87/58 115/68 O2 Sat by Pulse 98 98 98 Oximetry 11/24/24 11/24/24 11/24/24 00:17 01:07 02:29 Temperature Pulse Rate 87 99 103 H Respiratory 20 16 18 Rate Blood Pressure 97/56 128/70 122/82 O2 Sat by Pulse 100 99 98 Oximetry 11/24/24 11/24/24 11/24/24 03:53 06:20 07:51 Temperature 98.1 F Pulse Rate 105 H 104 H Respiratory 18 Rate Blood Pressure 130/78 O2 Sat by Pulse 95 Oximetry 11/24/24 11/24/24 11/24/24 07:53 08:49 11:10 Temperature Pulse Rate 106 H 113 H 101 H Respiratory 16 18 Rate Blood Pressure 120/74 O2 Sat by Pulse 96 99 Oximetry 11/24/24 11/24/24 11/24/24 12:18 14:35 16:11 Temperature 98.1 F Pulse Rate 95 118 H 112 H Respiratory 16 16 16 Rate Blood Pressure 121/74 117/65 O2 Sat by Pulse 100 98 99 Oximetry 11/24/24 19:24 Temperature Pulse Rate 118 H Respiratory 18 Rate Blood Pressure 110/80 O2 Sat by Pulse Oximetry EKG Findings - EKG Results: EKG: interpreted by ERMD, sinus rhythm, normal axis, normal QRS EKG shows: tachycardia (Rate 118 bpm) - Blocks, [place], Hypertrophy, ST Abn: Repolarization changes or abnormalities: nonspecific abnormality, ST segment, and/or T wave <Umer Branch - Last Filed: 12/06/24 07:07> Medical Decision Making <Mena Hernandez - Last Filed: 11/23/24 13:12> - Lab Data Result diagrams: 11/27/24 05:49 11/27/24 05:49 <SarinaUmer - Last Filed: 12/06/24 07:07> - Medical Decision Making Visual Physical Exam Vital signs reviewed General: Well-appearing, nontoxic, no acute distress. Head: Normocephalic, atraumatic Eyes: PERRLA, EOMI ENT: Airway patent Chest: Nonlabored breathing Skin: No visual rash, normal skin tone Neuro: Alert and oriented 3 Musculoskeletal: No gross abnormalities (Mena Hernandez) Patient is 64-year-old woman sent from the oncology clinic to have admission out of concerns about altered mental status and concerns that she may be septic. The patient started on fluids, antibiotics, no definite source of infection found, but patient admitted pending results of cultures. The patient had chest x-ray that I interpreted as negative for pneumothorax or congestive heart failure. Was pt. sent in by a medical professional or institution (BRUNO Rosas, ENGRAVING PRESS OPERATOR, urgent care, hospital, or retirement...) When possible be specific @ -[No] Did you speak to anyone other than the patient for history (EMS, parent, family, police, friend...)? What history was obtained from this source @ -[No] Did you review nursing and triage notes (agree or disagree)? Why? @ -[I reviewed and agree with nursing and triage notes] Were old charts reviewed (outside hosp., previous admission, EMS record, old EKG, old radiological studies, urgent care reports/EKG's, retirement records)? Report findings @ -[Yes, old charts were reviewed] Differential Diagnosis (chest pain, altered mental status, abdominal pain women, abdominal pain men, vaginal bleeding, weakness, fever, dyspnea, syncope, headache, dizziness, GI bleed, back pain, seizure, CVA, palpatations, mental health, musculoskeletal)? @ -[Differential Altered Mental Status: Hypoglycemia, DKA, hypercapnia, ETOH, overdose, CO poisoning, trauma, myxedema coma, HTN encephalopathy, infection, encephalitis, psychosis, intercranial hemorrhage, hepatic encephalopathy, meningitis, CVA, this is not meant to be an all-inclusive list EKG interpreted by me (3pts min.). @ -[As above] X-rays interpreted by me (1pt min.). @ -[Interpreted as above CT interpreted by me (1pt min.). @ -[None done] U/S interpreted by me (1pt. min.). @ -[None done] What testing was considered but not performed or refused? (CT, X-rays, U/S, labs)? Why? @ -[None] What meds were considered but not given or refused? Why? @ -[None] Did you discuss the management of the patient with other professionals (professionals i.e. , PA, ENGRAVING PRESS OPERATOR, lab, RT, psych nurse, medical social worker, sql ssrs developer, teacher, flight communications officer, lining caser)? Give summary @ -[Discussed with admitting physician and treatment recommendations incorporated Was smoking cessation discussed for >3mins.? @ -[No] Was critical care preformed (if so, how long)? @ -[Yes, 35 minutes Were there social determinants of health that impacted care today? How? (Homelessness, low income, unemployed, alcoholism, drug addiction, tr ansportation, low edu. Level, literacy, decrease access to med. care, custodial, rehab)? @ -[No] Was there de-escalation of care discussed even if they declined (Discuss DNR or withdrawal of care, Hospice)? DNR status @ -[No] What co-morbidities impacted this encounter? (DM, HTN, Smoking, COPD, CAD, Ca ncer, CVA, ARF, Chemo, Hep., AIDS, mental health diagnosis, sleep apnea, morbid obesity)? @ -[Underlying lung cancer Was patient admitted / discharged? Hospital course, mention meds given and route, prescriptions, significant lab abnormalities, going to OR and other pertinent info. @ -[Patient is 64-year-old woman who is admitted on IV antibiotics and fluid therapy with specialist consultation, underlying cancer does appear to be worsening Undiagnosed new problem with uncertain prognosis? @ -[No] Drug Therapy requiring intensive monitoring for toxicity (Heparin, Nitro, Insulin, Cardizem)? @ -[No] Were any procedures done? @ -[No] Diagnosis/symptom? @ -[Altered mental status Suspected sepsis Suspected pneumonia History of lung cancer Acute, or Chronic, or Acute on Chronic? @ -[Acute Uncomplicated (without systemic symptoms) or Complicated (systemic symptoms)? @ -[Complicated by mental status changes Side effects of treatment? @ -[No] Exacerbation, Progression, or Severe Exacerbation? @ -[No] Poses a threat to life or bodily function? How? (Chest pain, [place], CA, pneumonia, PE, COPD, DKA, ARF, appy, cholecystitis, CVA, Diverticulitis, Homicidal, Suicidal, threat to staff... and all critical care pts) @ -[Yes threat to life due to possibility of worsening infection/sepsis All treatments are based on ideal body weight as in ED triage (Umer Branch) - Lab Data Lab Results 11/23/24 11/23/24 11/23/24 Range/Units 13:12 13:45 13:45 WBC 22.9 H (3.8-10.6) k/uL RBC 2.90 L (3.80-5.40) m/uL Hgb 8.9 L (11.4-16.0) gm/dL Hct 28.0 L (34.0-46.0) % MCV 96.6 (80.0-100.0) fL MCH 30.9 (25.0-35.0) pg MCHC 31.9 (31.0-37.0) g/dL RDW 18.7 H (11.5-15.5) % Plt Count 91 L D (150-450) k/uL MPV 8.7 Neutrophils % (Manual) 74 % Band Neuts % (Manual) 11 % Lymphocytes % (Manual) 4 % Monocytes % (Manual) 7 % Eosinophils % (Manual) 5 % Neutrophils # (Manual) 19.40 H (1.3-7.7) k/uL Lymphocytes # (Manual) 0.92 L (1.0-4.8) k/uL Monocytes # (Manual) 1.60 H (0-1.0) k/uL Eosinophils # (Manual) 1.15 H (0-0.7) k/uL Nucleated RBCs 0 (0-0) /100 WBC Manual Slide Review Performed Hypochromasia Slight Anisocytosis Slight Macrocytosis Slight PT 14.2 H (10.0-12.5) sec INR 1.3 H (<1.2) APTT 28.1 (22.0-30.0) sec Sodium (137-145) mmol/L Potassium (3.5-5.1) mmol/L Chloride (98-107) mmol/L Carbon Dioxide (22-30) mmol/L Anion Gap mmol/L BUN (7-17) mg/dL Creatinine (0.52-1.04) mg/dL Est GFR (CKD-EPI)AfAm (>60 ml/min/1.73 sqM) Est GFR (CKD-EPI)NonAf (>60 ml/min/1.73 sqM) Glucose (74-99) mg/dL POC Glucose (mg/dL) 148 H (70-110) mg/dL POC Glu Customer Service Professional ID [facility] Lactic Ac Sepsis Rflx Plasma Lactic Acid Alejandro (0.7-2.0) mmol/L Calcium (8.4-10.2) mg/dL Total Bilirubin (0.2-1.3) mg/dL AST (14-36) U/L ALT (4-34) U/L Alkaline Phosphatase (38-126) U/L Ammonia (<30) umol/L Troponin I (0.000-0.034) ng/mL Total Protein (6.3-8.2) g/dL Albumin (3.5-5.0) g/dL 11/23/24 11/23/24 11/23/24 Range/Units 13:45 13:45 13:45 WBC (3.8-10.6) k/uL RBC (3.80-5.40) m/uL Hgb (11.4-16.0) gm/dL Hct (34.0-46.0) % MCV (80.0-100.0) fL MCH (25.0-35.0) pg MCHC (31.0-37.0) g/dL RDW (11.5-15.5) % Plt Count (150-450) k/uL MPV Neutrophils % (Manual) % Band Neuts % (Manual) % Lymphocytes % (Manual) % Monocytes % (Manual) % Eosinophils % (Manual) % Neutrophils # (Manual) (1.3-7.7) k/uL Lymphocytes # (Manual) (1.0-4.8) k/uL Monocytes # (Manual) (0-1.0) k/uL Eosinophils # (Manual) (0-0.7) k/uL Nucleated RBCs (0-0) /100 WBC Manual Slide Review Hypochromasia Anisocytosis Macrocytosis PT (10.0-12.5) sec INR (<1.2) APTT (22.0-30.0) sec Sodium 132 L (137-145) mmol/L Potassium 4.5 (3.5-5.1) mmol/L Chloride 97 L (98-107) mmol/L Carbon Dioxide 20 L (22-30) mmol/L Anion Gap 15 mmol/L BUN 61 H (7-17) mg/dL Creatinine 1.43 H (0.52-1.04) mg/dL Est GFR (CKD-EPI)AfAm 44 (>60 ml/min/1.73 sqM) Est GFR (CKD-EPI)NonAf 38 (>60 ml/min/1.73 sqM) Glucose 135 H (74-99) mg/dL POC Glucose (mg/dL) (70-110) mg/dL POC Glu Customer Service Professional ID Lactic Ac Sepsis Rflx Plasma Lactic Acid Alejandro (0.7-2.0) mmol/L Calcium 9.5 (8.4-10.2) mg/dL Total Bilirubin 0.6 (0.2-1.3) mg/dL AST 32 (14-36) U/L ALT 32 (4-34) U/L Alkaline Phosphatase 310 H (38-126) U/L Ammonia 33 H (<30) umol/L Troponin I <0.012 (0.000-0.034) ng/mL Total Protein 6.4 (6.3-8.2) g/dL Albumin 3.0 L (3.5-5.0) g/dL 11/23/24 11/23/24 Range/Units 20:13 21:09 WBC (3.8-10.6) k/uL RBC (3.80-5.40) m/uL Hgb (11.4-16.0) gm/dL Hct (34.0-46.0) % MCV (80.0-100.0) fL MCH (25.0-35.0) pg MCHC (31.0-37.0) g/dL RDW (11.5-15.5) % Plt Count (150-450) k/uL MPV Neutrophils % (Manual) % Band Neuts % (Manual) % Lymphocytes % (Manual) % Monocytes % (Manual) % Eosinophils % (Manual) % Neutrophils # (Manual) (1.3-7.7) k/uL Lymphocytes # (Manual) (1.0-4.8) k/uL Monocytes # (Manual) (0-1.0) k/uL Eosinophils # (Manual) (0-0.7) k/uL Nucleated RBCs (0-0) /100 WBC Manual Slide Review Hypochromasia Anisocytosis Macrocytosis PT (10.0-12.5) sec INR (<1.2) APTT (22.0-30.0) sec Sodium (137-145) mmol/L Potassium (3.5-5.1) mmol/L Chloride (98-107) mmol/L Carbon Dioxide (22-30) mmol/L Anion Gap mmol/L BUN (7-17) mg/dL Creatinine (0.52-1.04) mg/dL Est GFR (CKD-EPI)AfAm (>60 ml/min/1.73 sqM) Est GFR (CKD-EPI)NonAf (>60 ml/min/1.73 sqM) Glucose (74-99) mg/dL POC Glucose (mg/dL) (70-110) mg/dL POC Glu Customer Service Professional ID Lactic Ac Sepsis Rflx Y Plasma Lactic Acid Alejandro 2.3 H* (0.7-2.0) mmol/L Calcium (8.4-10.2) mg/dL Total Bilirubin (0.2-1.3) mg/dL AST (14-36) U/L ALT (4-34) U/L Alkaline Phosphatase (38-126) U/L Ammonia (<30) umol/L Troponin I (0.000-0.034) ng/mL Total Protein (6.3-8.2) g/dL Albumin (3.5-5.0) g/dL Disposition <Mena Hernandez - Last Filed: 11/23/24 13:12> Is patient prescribed a controlled substance at d/c from ED?: No <Umer Branch - Last Filed: 12/06/24 07:07> Clinical Impression: AMS (altered mental status), Lung cancer, Sepsis Disposition: ADMITTED IP TO THIS HOSP Condition: Poor
--- NOTE | 2024-11-23 14:32 | XR ---
EXAMINATION TYPE: XR chest 2V DATE OF EXAM: 11/23/2024 2:25 PM COMPARISON: None. CLINICAL INDICATION: Female, 64 years old with history of altered mental status, prior abnormal chest , lung mass TECHNIQUE: XR chest 2V view(s) obtained. FINDINGS: The heart size is normal. The pulmonary vasculature is normal. Large right suprahilar mass remains present. This currently is estimated to measure 7.0 x 8.8 x 10 cm . Previous measurements 7.0 x 8.1 x 9.2 cm. IMPRESSION: 1. Slight increased size right suprahilar mass. [facility], , 11/23/2024 2:30 PM
[2024-11-23 14:43] LABS: INR 1.3 (<1.2); Partial Thromboplastin Time 28.1 sec (22.0-30.0); Prothrombin Time 14.2 sec (10.0-12.5)
--- NOTE | 2024-11-23 14:45 | CT ---
EXAMINATION TYPE: CT brain wo con DATE OF EXAM: 11/23/2024 2:19 PM COMPARISON: None. CLINICAL INDICATION: Female, 64 years old with history of Altered mental status, AMS TECHNIQUE: Brain: Axial CT images of the brain were obtained with coronal and sagittal reformats created and rev iewed. Contrast used: None. Oral contrast used: None. CT DLP: 1166.4 mGycm, Automated exposure control for dose reduction was used. FINDINGS: Brain: Extra-axial spaces: No abnormal extra-axial fluid collections. Ventricular system: Within normal limits Cerebral parenchyma: No acute intraparenchymal hemorrhage or mass effect. The akers-white junction is well differentiated. Cerebellum: Unremarkable. Mass effect: No evidence of midline shift. Intracranial vasculature: Atherosclerotic calcifications of the intracranial vessels. Soft tissues: Normal. Calvarium/osseous structures: No depressed skull fracture. Paranasal sinuses and mastoid air cells: Mild scattered paranasal sinus disease. Visualized orbits: Orbital contents are intact. IMPRESSION: No acute intracranial process. [facility], , 11/23/2024 2:42 PM
[2024-11-23 14:47] LABS: Anisocytosis Slight; HGB 8.9 gm/dL (11.4-16.0); Hypochromasia Slight; MCH 30.9 pg (25.0-35.0); MCHC 31.9 g/dL (31.0-37.0); MCV 96.6 fL (80.0-100.0); Macrocytosis Slight; Mean Platelet Volume 8.7; RDW 18.7 % (11.5-15.5); WBC 22.9 k/uL (3.8-10.6)
[2024-11-23 15:22] LABS: Platelet Count 91 k/uL (150-450)
[2024-11-23 15:28] LABS: Band Neutrophils % 11 %; Eosinophils # (M) 1.15 k/uL (0-0.7); Lymphocytes # (M) 0.92 k/uL (1.0-4.8); Neutrophils % (M) 74 %; Nucleated Red Blood Cells 0 /100 WBC (0-0); Total Cells Counted 200
[2024-11-23 16:21] LABS: ALT 32 U/L (4-34); AST 32 U/L (14-36); African American GFR (CKD) 44 (>60 ml/min/1.73 sqM); Alkaline Phosphatase 310 U/L (38-126); Anion Gap 15 mmol/L; Blood Urea Nitrogen 61 mg/dL (7-17); Calcium 9.5 mg/dL (8.4-10.2); Carbon Dioxide 20 mmol/L (22-30); Chloride 97 mmol/L (98-107); Glucose 135 mg/dL (74-99); Non-African American GFR(CKD) 38 (>60 ml/min/1.73 sqM); Potassium 4.5 mmol/L (3.5-5.1); Sodium 132 mmol/L (137-145); Total Bilirubin 0.6 mg/dL (0.2-1.3); Total Protein 6.4 g/dL (6.3-8.2)
[2024-11-23] MEDS: SODIUM CHLORIDE 0.9% 1,000 ML IV STA (20:09)
[2024-11-23] MEDS: SODIUM CHLORIDE 0.9% 1,000 ML IV ONE (20:09)
[2024-11-23] MEDS ORDERED: NALOXONE 0.4 MG/ML 1 ML VIAL IV PRN (22:37)
[2024-11-23] MEDS: SODIUM CHLORIDE 0.9% 1,000 ML IV SCH (22:59)
[2024-11-24] MEDS: SODIUM CHLORIDE 0.9% 1,000 ML IV ONE (00:02)
[2024-11-24 04:59] LABS: Influenza A Detected (Not Detectd); Influenza B Not Detected (Not Detectd); RSV Not Detected (Not Detectd)
[2024-11-24] MEDS: ACETAMINOPHEN TAB 325 MG TAB PO PRN (05:42)
[2024-11-24] MEDS ORDERED: ALBUTEROL NEBULIZED 2.5 MG/3 ML INHALATION PRN (06:14)
[2024-11-24] MEDS: IPRATROPIUM-ALBUTEROL 3 ML NEB INHALATION SCH (07:51)
[2024-11-24] MEDS: FAMOTIDINE 20 MG TAB PO SCH (08:50)
[2024-11-24] MEDS: METOPROLOL SUCCINATE (ER) 50 MG TAB.ER.24H PO SCH (08:50)
[2024-11-24] MEDS: DOCUSATE 100 MG CAP PO SCH (08:50)
[2024-11-24] MEDS: polyethylene glycoL 3350 17 GM POWD.PACK PO SCH (08:51)
[2024-11-24 10:29] LABS: Anisocytosis Slight; Basophils % (A) 0 %; Eosinophils # (A) 0.6 k/uL (0-0.7); Eosinophils % (A) 4 %; HCT 26.2 % (34.0-46.0); HGB 8.3 gm/dL (11.4-16.0); Hypochromasia Marked; Lymphocytes # (A) 0.4 k/uL (1.0-4.8); Lymphocytes % (A) 2 %; MCH 31.3 pg (25.0-35.0); MCHC 31.7 g/dL (31.0-37.0); MCV 98.6 fL (80.0-100.0); Macrocytosis Slight; Mean Platelet Volume 9.3; Monocytes # (A) 0.7 k/uL (0-1.0); Monocytes % (A) 4 %; Neutrophils # (A) 13.8 k/uL (1.3-7.7); Neutrophils % (A) 88 %; RBC 2.65 m/uL (3.80-5.40); RDW 18.9 % (11.5-15.5); WBC 15.7 k/uL (3.8-10.6)
[2024-11-24 10:49] LABS: Platelet Count 66 k/uL (150-450)
[2024-11-24 10:54] LABS: ALT 28 U/L (4-34); AST 31 U/L (14-36); African American GFR (CKD) 53 (>60 ml/min/1.73 sqM); Albumin 2.4 g/dL (3.5-5.0); Albumin/Globulin Ratio 0.8; Alkaline Phosphatase 288 U/L (38-126); Anion Gap 10 mmol/L; Blood Urea Nitrogen 51 mg/dL (7-17); Calcium 8.6 mg/dL (8.4-10.2); Carbon Dioxide 23 mmol/L (22-30); Chloride 103 mmol/L (98-107); Globulin 2.9 g/dL; Glucose 95 mg/dL (74-99); Non-African American GFR(CKD) 46 (>60 ml/min/1.73 sqM); Potassium 4.2 mmol/L (3.5-5.1); Sodium 136 mmol/L (137-145); Total Bilirubin 0.6 mg/dL (0.2-1.3); Total Protein 5.3 g/dL (6.3-8.2)
[2024-11-24] MEDS ORDERED: polyethylene glycoL 3350 17 GM POWD.PACK PO PRN (12:55)
--- NOTE | 2024-11-24 13:02 | P.HPIM ---
History of Present Illness 64-year-old pleasant female was sent in from radiation oncology because of altered mental status fever. Patient is found to have influenza patient does have white count patient also has acute renal failure with creatinine going up to 1.4. Patient's baseline creatinine is around 1. Patient was started on IV fluids and subsequently admitted. Chest x-ray showed hide infiltrate patient does have history of lung cancer this appears to be lung cancer mass. Urine analysis is not available at this time. Patient is on 2 L of oxygen usually does not wear any oxygen. Patient also saturating 100% on 2 L we will try and wean off oxygen. Patient is also on sustained-release and immediate release morphine's. Patient usually gets confused assessment is because of which her her is holding off all the sustained-release morphine. REVIEW OF SYSTEMS: All other systems are negative except those mentioned in the HPI PHYSICAL EXAMINATION: GENERAL: The patient is alert and oriented x3, not in any acute distress. Well developed, well nourished. HEENT: Pupils are round and equally reacting to light. EOMI. No scleral icterus. No conjunctival pallor. Normocephalic, atraumatic. No pharyngeal erythema. No thyromegaly. CARDIOVASCULAR: S1 and S2 present. No murmurs, rubs, or gallops. PULMONARY: Chest is clear to auscultation, no wheezing or crackles. ABDOMEN: Soft, nontender, nondistended, normoactive bowel sounds. No palpable organomegaly. MUSCULOSKELETAL: No joint swelling or deformity. EXTREMITIES: No cyanosis, clubbing, or pedal edema. NEUROLOGICAL: Gross neurological examination did not reveal any focal deficits. SKIN: No rashes. Assessment and plan -Altered mental status secondary to toxic encephalopathy mostly because of morphine. Patient has acute renal failure which may be secondary to dehydration because of acute renal failure patient's morphine is probably not being metabolized her electrolytes or mental status will hold off on extended release will continue with as needed short-acting morphine so that patient does not have withdrawals and patient is not in pain. Hold of gabapentin. -Sepsis secondary to influenza -Acute renal failure prerenal ischemia secondary to dehydration. -Leukocytosis secondary to sepsis from influenza -Lung cancer metastic disease oncology was consulted will also consult radiation oncology -Rheumatoid arthritis history DVT prophylaxis: Subcutaneous heparin Past Medical History Past Medical History: Cancer Additional Past Medical History / Comment(s): Pulmonary adenocarcinoma, rheumatoid arthritis History of Any Multi-Drug Resistant Organisms: None Reported Additional Past Surgical History / Comment(s): Netta Past Anesthesia/Blood Transfusion Reactions: No Reported Reaction Past Psychological History: No Psychological Hx Reported Smoking Status: Former smoker Past Alcohol Use History: None Reported Past Drug Use History: Marijuana Additional Drug Use History / Comment(s): patient states she takisn marijuana gummies to help with pain/sleep Medications and Allergies Home Medications Medication Instructions Recorded Confirmed Type Albuterol Inhaler [Ventolin Hfa 1 - 2 puff INHALATION RT-Q6H PRN 11/06/24 History Inhaler] Codeine 30 mg PO Q8H PRN 11/06/24 11/24/24 History Docusate [Colace] 100 mg PO DAILY 11/06/24 11/24/24 History Folic Acid 1 mg PO DAILY 11/06/24 11/24/24 History Ondansetron [Zofran] 4 mg PO Q4H PRN 11/06/24 11/24/24 History oxyCODONE HCL [oxyCODONE HCL (IR)] 15 - 30 mg PO Q4H PRN 11/06/24 11/24/24 History polyethylene glycoL 3350 [Miralax] 17 gm PO DAILY 11/06/24 11/24/24 History Ipratropium-Albuterol Nebulize 3 ml INHALATION QID 30 Days #120 ml 11/13/24 11/24/24 Rx [Duoneb 0.5 mg-3 mg/3 ml Soln] Metoprolol Succinate (ER) [Toprol 50 mg PO BID 30 Days #60 tab 11/13/24 11/24/24 Rx XL] Gabapentin 300 mg PO TID 11/24/24 11/24/24 History oxyCODONE HCL [OxyCONTIN] 30 mg PO BID 11/24/24 11/24/24 History Allergies Allergy/AdvReac Type Severity Reaction Status Date / Time No Known Allergies Allergy Verified 11/24/24 08:40 Physical Exam Vitals: Vital Signs Temp Pulse Resp BP Pulse Ox 11/24/24 12:18 95 16 100 11/24/24 11:10 101 H 18 99 11/24/24 08:49 113 H 16 120/74 96 11/24/24 07:53 106 H 11/24/24 07:51 104 H 11/24/24 06:20 105 H 18 130/78 95 11/24/24 03:53 98.1 F 11/24/24 02:29 103 H 18 122/82 98 11/24/24 01:07 99 16 128/70 99 11/24/24 00:17 87 20 97/56 100 11/23/24 23:30 84 18 115/68 98 11/23/24 23:20 83 20 87/58 98 11/23/24 22:30 89 18 81/56 98 11/23/24 21:00 100 18 93/52 94 L 11/23/24 20:30 101 H 20 101/56 97 11/23/24 13:06 98.6 F 124 H 18 91/63 94 L Results CBC & Chem 7: 11/24/24 10:04 11/24/24 10:04 Labs: Abnormal Lab Results - Last 24 Hours (Table) 11/23/24 11/23/24 11/23/24 Range/Units 13:12 13:45 13:45 WBC 22.9 H (3.8-10.6) k/uL RBC 2.90 L (3.80-5.40) m/uL Hgb 8.9 L (11.4-16.0) gm/dL Hct 28.0 L (34.0-46.0) % RDW 18.7 H (11.5-15.5) % Plt Count 91 L D (150-450) k/uL Neutrophils # (1.3-7.7) k/uL Neutrophils # (Manual) 19.40 H (1.3-7.7) k/uL Lymphocytes # (1.0-4.8) k/uL Lymphocytes # (Manual) 0.92 L (1.0-4.8) k/uL Monocytes # (Manual) 1.60 H (0-1.0) k/uL Eosinophils # (Manual) 1.15 H (0-0.7) k/uL PT 14.2 H (10.0-12.5) sec INR 1.3 H (<1.2) Sodium (137-145) mmol/L Chloride (98-107) mmol/L Carbon Dioxide (22-30) mmol/L BUN (7-17) mg/dL Creatinine (0.52-1.04) mg/dL Glucose (74-99) mg/dL POC Glucose (mg/dL) 148 H (70-110) mg/dL Plasma Lactic Acid Alejandro (0.7-2.0) mmol/L Alkaline Phosphatase (38-126) U/L Ammonia (<30) umol/L Total Protein (6.3-8.2) g/dL Albumin (3.5-5.0) g/dL Influenza Type A (PCR) (Not Detectd) 11/23/24 11/23/24 11/23/24 Range/Units 13:45 13:45 20:13 WBC (3.8-10.6) k/uL RBC (3.80-5.40) m/uL Hgb (11.4-16.0) gm/dL Hct (34.0-46.0) % RDW (11.5-15.5) % Plt Count (150-450) k/uL Neutrophils # (1.3-7.7) k/uL Neutrophils # (Manual) (1.3-7.7) k/uL Lymphocytes # (1.0-4.8) k/uL Lymphocytes # (Manual) (1.0-4.8) k/uL Monocytes # (Manual) (0-1.0) k/uL Eosinophils # (Manual) (0-0.7) k/uL PT (10.0-12.5) sec INR (<1.2) Sodium 132 L (137-145) mmol/L Chloride 97 L (98-107) mmol/L Carbon Dioxide 20 L (22-30) mmol/L BUN 61 H (7-17) mg/dL Creatinine 1.43 H (0.52-1.04) mg/dL Glucose 135 H (74-99) mg/dL POC Glucose (mg/dL) (70-110) mg/dL Plasma Lactic Acid Alejandro 2.3 H* (0.7-2.0) mmol/L Alkaline Phosphatase 310 H (38-126) U/L Ammonia 33 H (<30) umol/L Total Protein (6.3-8.2) g/dL Albumin 3.0 L (3.5-5.0) g/dL Influenza Type A (PCR) (Not Detectd) 11/24/24 11/24/24 11/24/24 Range/Units 03:51 10:04 10:04 WBC 15.7 H (3.8-10.6) k/uL RBC 2.65 L (3.80-5.40) m/uL Hgb 8.3 L (11.4-16.0) gm/dL Hct 26.2 L (34.0-46.0) % RDW 18.9 H (11.5-15.5) % Plt Count 66 L (150-450) k/uL Neutrophils # 13.8 H (1.3-7.7) k/uL Neutrophils # (Manual) (1.3-7.7) k/uL Lymphocytes # 0.4 L (1.0-4.8) k/uL Lymphocytes # (Manual) (1.0-4.8) k/uL Monocytes # (Manual) (0-1.0) k/uL Eosinophils # (Manual) (0-0.7) k/uL PT (10.0-12.5) sec INR (<1.2) Sodium 136 L (137-145) mmol/L Chloride (98-107) mmol/L Carbon Dioxide (22-30) mmol/L BUN 51 H (7-17) mg/dL Creatinine 1.23 H (0.52-1.04) mg/dL Glucose (74-99) mg/dL POC Glucose (mg/dL) (70-110) mg/dL Plasma Lactic Acid Alejandro (0.7-2.0) mmol/L Alkaline Phosphatase 288 H (38-126) U/L Ammonia (<30) umol/L Total Protein 5.3 L (6.3-8.2) g/dL Albumin 2.4 L (3.5-5.0) g/dL Influenza Type A (PCR) Detected A (Not Detectd)
--- NOTE | 2024-11-24 17:07 | P.CONS ---
History of Present Illness - Reason for Consult Consult date: 11/24/24 Metastatic NSCLC Requesting physician: Umer Branch - Chief Complaint SOB, chest hurting - History of Present Illness Ms. Cohen is a 64-year-old patient of Dr. Cadet with a history of non-small cell lung cancer, recent disease progression. She was initially diagnosed in early 2023 when she presented with a persistent dry cough. Chest x-ray 12/12/2023 showed a right lung mass. CT 12/13/2023 showed a 7.6 x 9 x 8.5 cm mass in the right middle lobe, central necrosis, abutting the mediastinum, in contact with brachiocephalic vein causing compression of lower SVC. 2.3 cm right paratracheal node and a 3.2 cm necrotic mass in the left adrenal gland. She was referred to Dr. Argueta at [place] however, she had SVT, admitted to [facility], underwent bronchoscopy 12/17/2023. There was occlusion of RUL, cytology favored poorly differentiated carcinoma, a definitive diagnosis couldn't be made. Brain MRI 12/23/2023 was negative for brain mets. PET 01/02/2024 showed sign ificant uptake in 9 cm lung mass, mediastinal nodes, bilateral adrenal glands, C2, paravertebral musculature at T11-T12 and L4. 01/06/2024 CT guided lung biopsy was positive for poorly differentiated carcinoma, favoring adenocarcinoma. 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 She started targeted agent tabrecta on 01/21/2024, had palliative radiation to C2. Tx f/u PET 02/27/24 showed significant reduction in RUL mass SUV and hilar and mediastinal LN, left cardiophrenic node resolved, significantly decreased activities in C2. Tabrecta dose was reduced to 200 mg BID 03/11/2024 due to poor tolerance. PET scan 06/22/2024 showed worsening uptake in RUL lung mass (very large)and left adrenal gland and right adrenal gland, MRI brain 07/27/2024 was negative for mets. 08/10/2024,she started carbo/alimta/keytruda. She had treatment follow-up scans 09/10/2024 showing of mixed response with stable disease in some areas, mild progression in other areas. She was admitted to [facility] October 2024 with worsening chest pain, dyspnea and cough. CTA was negative for PE, showed enlarging right upper lobe mass, encasing right pulmonary artery and extending to cut off the right mainstem bronchus. She started palliative radiation to the right upper lobe mass 11/12/2024, that was due to be completed yesterday. Dr. Cadet met with the patient and her family in the office on 11/16 to discuss disease progression. They were offered chemotherapy option of single agent Taxotere vs clinical trials in [place]. Pt and family wanted to see what clinical trials are available. Referral was made to Dr. Mantilla. Patient states they do not have an appointment date and time yet. Currently patient is admitted with altered mental status. Patient repeated several times that my "heart hurts". She states that she has had some weight loss, denies any fevers, chills, nausea, vomiting, diarrhea, shortness of breath. CT of the head without contrast was negative. Patient did test positive for flu A. Review of Systems 10 point ROS is neg-pt is slightly confused at times Past Medical History Past Medical History: Cancer Additional Past Medical History / Comment(s): Pulmonary adenocarcinoma, rheum atoid arthritis History of Any Multi-Drug Resistant Organisms: None Reported Additional Past Surgical History / Comment(s): Daveik Past Anesthesia/Blood Transfusion Reactions: No Reported Reaction Past Psychological History: No Psychological Hx Reported Smoking Status: Former smoker Past Alcohol Use History: None Reported Past Drug Use History: Marijuana Additional Drug Use History / Comment(s): patient states she takisn marijuana gummies to help with pain/sleep - Past Family History Mother Family Medical History: Cancer (breast) Medications and Allergies Home Medications Medication Instructions Recorded Confirmed Type Albuterol Inhaler [Ventolin Hfa 1 - 2 puff INHALATION RT-Q6H PRN 11/06/24 11/24/24 History Inhaler] Codeine 30 mg PO Q8H PRN 11/06/24 11/24/24 History Docusate [Colace] 100 mg PO DAILY 11/06/24 11/24/24 History Folic Acid 1 mg PO DAILY 11/06/24 11/24/24 History Ondansetron [Zofran] 4 mg PO Q4H PRN 11/06/24 11/24/24 History oxyCODONE HCL [oxyCODONE HCL (IR)] 15 - 30 mg PO Q4H PRN 11/06/24 11/24/24 History polyethylene glycoL 3350 [Miralax] 17 gm PO DAILY 11/06/24 11/24/24 History Ipratropium-Albuterol Nebulize 3 ml INHALATION QID 30 Days #120 ml 11/13/24 11/24/24 Rx [Duoneb 0.5 mg-3 mg/3 ml Soln] Metoprolol Succinate (ER) [Toprol 50 mg PO BID 30 Days #60 tab 11/13/24 11/24/24 Rx XL] Gabapentin 300 mg PO TID 11/24/24 11/24/24 History oxyCODONE HCL [OxyCONTIN] 30 mg PO BID 11/24/24 11/24/24 History Allergies Allergy/AdvReac Type Severity Reaction Status Date / Time No Known Allergies Allergy Verified 11/24/24 08:40 Physical Exam Vitals: Vital Signs Temp Pulse Resp BP Pulse Ox 11/24/24 08:49 113 H 16 120/74 96 11/24/24 07:53 106 H 11/24/24 07:51 104 H 11/24/24 06:20 105 H 18 130/78 95 11/24/24 03:53 98.1 F 11/24/24 02:29 103 H 18 122/82 98 11/24/24 01:07 99 16 128/70 99 11/24/24 00:17 87 20 97/56 100 11/23/24 23:30 84 18 115/68 98 11/23/24 23:20 83 20 87/58 98 11/23/24 22:30 89 18 81/56 98 11/23/24 21:00 100 18 93/52 94 L 11/23/24 20:30 101 H 20 101/56 97 11/23/24 13:06 98.6 F 124 H 18 91/63 94 L - Constitutional General appearance: average body habitus, cooperative, no acute distress - EENT Eyes: anicteric sclerae, EOMI ENT: hearing grossly normal, normal oropharynx - Neck Neck: no lymphadenopathy - Respiratory Respiratory: right: diminished, left: CTA - Cardiovascular mild tachycardia Heart sounds: normal: S1, S2 Abnormal Heart Sounds: no systolic murmur, no diastolic murmur, no rub, no S3 Gallop, no S4 Gallop, no click, no other - Gastrointestinal General gastrointestinal: no absent bowel sounds, no decreased bowel sounds, no distended, no hepatomegaly, no hyperactive bowel sounds, normal bowel sounds, no organomegaly, no rigid, no scaphoid, soft, no splenomegaly, no tenderness, no umbilical hernia, no ventral hernia - Integumentary Integumentary: normal - Neurologic Neurologic: CNII-XII intact - Musculoskeletal Musculoskeletal: generalized weakness, strength equal bilaterally - Psychiatric Alert, oriented to self, place, mildly confused conversation-stated several times that her "heart hurts". Results CBC & Chem 7: 11/24/24 10:04 11/24/24 10:04 Labs: Abnormal Lab Results - Last 24 Hours (Table) 11/23/24 11/23/24 11/23/24 Range/Units 13:12 13:45 13:45 WBC 22.9 H (3.8-10.6) k/uL RBC 2.90 L (3.80-5.40) m/uL Hgb 8.9 L (11.4-16.0) gm/dL Hct 28.0 L (34.0-46.0) % RDW 18.7 H (11.5-15.5) % Plt Count 91 L D (150-450) k/uL Neutrophils # (Manual) 19.40 H (1.3-7.7) k/uL Lymphocytes # (Manual) 0.92 L (1.0-4.8) k/uL Monocytes # (Manual) 1.60 H (0-1.0) k/uL Eosinophils # (Manual) 1.15 H (0-0.7) k/uL PT 14.2 H (10.0-12.5) sec INR 1.3 H (<1.2) Sodium (137-145) mmol/L Chloride (98-107) mmol/L Carbon Dioxide (22-30) mmol/L BUN (7-17) mg/dL Creatinine (0.52-1.04) mg/dL Glucose (74-99) mg/dL POC Glucose (mg/dL) 148 H (70-110) mg/dL Plasma Lactic Acid Alejandro (0.7-2.0) mmol/L Alkaline Phosphatase (38-126) U/L Ammonia (<30) umol/L Albumin (3.5-5.0) g/dL Influenza Type A (PCR) (Not Detectd) 11/23/24 11/23/24 11/23/24 Range/Units 13:45 13:45 20:13 WBC (3.8-10.6) k/uL RBC (3.80-5.40) m/uL Hgb (11.4-16.0) gm/dL Hct (34.0-46.0) % RDW (11.5-15.5) % Plt Count (150-450) k/uL Neutrophils # (Manual) (1.3-7.7) k/uL Lymphocytes # (Manual) (1.0-4.8) k/uL Monocytes # (Manual) (0-1.0) k/uL Eosinophils # (Manual) (0-0.7) k/uL PT (10.0-12.5) sec INR (<1.2) Sodium 132 L (137-145) mmol/L Chloride 97 L (98-107) mmol/L Carbon Dioxide 20 L (22-30) mmol/L BUN 61 H (7-17) mg/dL Creatinine 1.43 H (0.52-1.04) mg/dL Glucose 135 H (74-99) mg/dL POC Glucose (mg/dL) (70-110) mg/dL Plasma Lactic Acid Alejandro 2.3 H* (0.7-2.0) mmol/L Alkaline Phosphatase 310 H (38-126) U/L Ammonia 33 H (<30) umol/L Albumin 3.0 L (3.5-5.0) g/dL Influenza Type A (PCR) (Not Detectd) 11/24/24 Range/Units 03:51 WBC (3.8-10.6) k/uL RBC (3.80-5.40) m/uL Hgb (11.4-16.0) gm/dL Hct (34.0-46.0) % RDW (11.5-15.5) % Plt Count (150-450) k/uL Neutrophils # (Manual) (1.3-7.7) k/uL Lymphocytes # (Manual) (1.0-4.8) k/uL Monocytes # (Manual) (0-1.0) k/uL Eosinophils # (Manual) (0-0.7) k/uL PT (10.0-12.5) sec INR (<1.2) Sodium (137-145) mmol/L Chloride (98-107) mmol/L Carbon Dioxide (22-30) mmol/L BUN (7-17) mg/dL Creatinine (0.52-1.04) mg/dL Glucose (74-99) mg/dL POC Glucose (mg/dL) (70-110) mg/dL Plasma Lactic Acid Alejandro (0.7-2.0) mmol/L Alkaline Phosphatase (38-126) U/L Ammonia (<30) umol/L Albumin (3.5-5.0) g/dL Influenza Type A (PCR) Detected A (Not Detectd) Chest x-ray: report reviewed CT Scan - head: report reviewed Assessment and Plan (1) AMS (altered mental status) Current Visit: Yes Status: Acute Priority: High Code(s): R41.82 - ALTERED MENTAL STATUS, UNSPECIFIED SNOMED Code(s): 745956701 (2) Non-small cell lung cancer (NSCLC) Current Visit: Yes Status: Acute Priority: High Code(s): C34.90 - MALIGNANT NEOPLASM OF UNSP PART OF UNSP BRONCHUS OR LUNG SNOMED Code(s): 410637820 Plan: Altered mental status -presenting with resp symptoms and confusion. No fevers, tachycardia on telemetry, WBC 15.7, ANC 13.8. Hemoglobin 8.3. Platelets 66,000. BUN 51, creatinine 1.23. Lactic acid 2.3. CXR impression- slightly increased size of the right suprahilar mass. CT of the brain without contrast reporting no acute intracranial process -flu A positive -She is receiving hydration. -If mental status does not improve over the next 24 to 48 hours, recommend MRI assessment-due to recent disease progression of non-small cell lung cancer, rule out mets to brain Non-small cell lung cancer -Diagnosis and treatment as documented in HPI -Patient most recently had disease progression. She had discussion recently with primary Medical Oncologist Dr. Cadet. Treatment options including single agent chemotherapy versus clinical trial evaluation. Patient has been referred to Dr. Mantilla,at [facility] to see what clinical trials are available to her Doctor attests: I performed a history and physical examination of this patient, developed impression and plan of care. Discussed with dictator. I agree with dictators note, documented as a scribe.
[2024-11-24] MEDS: HEPARIN SODIUM,PORCINE 5,000 UNIT/ML 1 ML VIAL SQ SCH (20:15)
[2024-11-24] MEDS ORDERED: oxyCODONE ER 15 MG TAB.ER.12H PO SCH (21:00)
[2024-11-25 04:01] LABS: Anisocytosis Slight; HGB 8.3 gm/dL (11.4-16.0); Hypochromasia Marked; MCH 31.4 pg (25.0-35.0); MCHC 31.8 g/dL (31.0-37.0); MCV 98.8 fL (80.0-100.0); Macrocytosis Moderate; Mean Platelet Volume 9.4; RBC 2.63 m/uL (3.80-5.40); RDW 19.3 % (11.5-15.5)
[2024-11-25 04:04] LABS: Platelet Count 55 k/uL (150-450)
[2024-11-25 06:08] LABS: Glucose,Whole Blood 109 mg/dL (70-110)
[2024-11-25] MEDS: FUROSEMIDE 10 MG/ML 2 ML VIAL IV STA (11:06)
[2024-11-25] MEDS ORDERED: guaiFENesin SYRUP 100MG/5ML 200 MG/10 ML CUP PO PRN (11:12)
--- NOTE | 2024-11-25 11:17 | P.PN ---
Subjective Progress Note Date: 11/25/24 Principal diagnosis: AMS, NSCLC recent disease progression In f/u pt is sitting up with , she is drowsy, she states low back hurts, denies difficulty breathing, noting she is irritable. Objective - Vital Signs Vital signs: Vital Signs Temp 98.1 F 11/25/24 08:09 Pulse 112 H 11/25/24 08:14 Resp 17 11/25/24 08:09 BP 105/71 11/25/24 08:09 Pulse Ox 96 11/25/24 08:09 FiO2 Intake & Output 11/24/24 11/25/24 11/25/24 18:59 06:59 18:59 Weight 50.802 kg Other: # Voids 2 - Constitutional General appearance: Present: average body habitus, cooperative, no acute distress - EENT EENT Comment(s): EOM slow to respond Eyes: Present: anicteric sclerae ENT: Present: hearing grossly normal - Respiratory Details: resp unlabored at rest - Cardiovascular Details: skin warm, well perfused - Peripheral edema leg Peripheral Edema: bilateral: Trace - Integumentary Integumentary: Present: normal turgor - Psychiatric Psychiatric Comment(s): Drowsy, oriented to self, remote memory intact - Labs CBC & Chem 7: 11/25/24 03:36 11/24/24 10:04 Labs: Abnormal Lab Results - Last 24 Hours (Table) 11/24/24 11/25/24 Range/Units 10:04 03:36 WBC 15.0 H (3.8-10.6) k/uL RBC 2.63 L (3.80-5.40) m/uL Hgb 8.3 L (11.4-16.0) gm/dL Hct 26.0 L (34.0-46.0) % RDW 19.3 H (11.5-15.5) % Plt Count 55 L (150-450) k/uL Procalcitonin 3.02 H (0.02-0.50) ng/mL Microbiology - Last 24 Hours (Table) 11/23/24 13:45 Blood Culture - Preliminary Blood Assessment and Plan (1) AMS (altered mental status) Current Visit: Yes Status: Acute Priority: High Code(s): R41.82 - ALTERED MENTAL STATUS, UNSPECIFIED SNOMED Code(s): 331379317 (2) Non-small cell lung cancer (NSCLC) Current Visit: Yes Status: Acute Priority: High Code(s): C34.90 - MALIGNANT NEOPLASM OF UNSP PART OF UNSP BRONCHUS OR LUNG SNOMED Code(s): 999548714 Plan: Altered mental status -presenting with resp symptoms and confusion. No fevers, tachycardia on tele metry, WBC 15.7, ANC 13.8. Hemoglobin 8.3. Platelets 66,000. BUN 51, creatinine 1.23. Lactic acid 2.3. CXR impression- slightly increased size of the right suprahilar mass. CT of the brain without contrast reporting no acute intracranial process -flu A positive -If mental status has not improved, slightly worse. MRI brain ordered to assess for brain mets since pt had recent disease progression of non-small cell lung cancer Non-small cell lung cancer -Diagnosis and treatment as documented in consult -Patient most recently had disease progression. She had discussion recently with primary Medical Oncologist Dr. Cadet. Treatment options including single agent chemotherapy versus clinical trial evaluation. Patient has been referred to Dr. Mantilla,at [facility] to see what clinical trials are available to her. Cough syrup without codeine ordered for pt-codeine cough syrup was held for confusion
--- NOTE | 2024-11-25 12:00 | XR ---
EXAMINATION TYPE: XR chest 2V DATE OF EXAM: 11/25/2024 11:46 AM COMPARISON: 11/23/2024 CLINICAL INDICATION: Female, 64 years old with history of shortness of breath, TECHNIQUE: XR chest 2V view(s) obtained. FINDINGS: The heart size is normal. The pulmonary vasculature is normal. Aerated lungs are clear. Right suprahilar mass remains present. IMPRESSION: 1. Right upper lobe mass remains present. 2. No suspicious acute pulmonary process otherwise evident. [facility], , 11/25/2024 11:57 AM
--- NOTE | 2024-11-25 13:25 | P.PN ---
Subjective Progress Note Date: 11/25/24 Principal diagnosis: altered mental status The patient is a 64 year old female with a history of a metastatic non-small cell lung cancer of the right upper lung. She has recently been on chemo immunotherapy. She has completed 8 of 10 planned palliative radiotherapy treatments to the right upper lobe. She was hospitalized on November 23 secondary to altered mental status and tachycardia. The patient was evaluated today. She unfortunately was unable to lie flat for her radiotherapy. She states she was having pain. She denies headaches, but she is quite slow in responding to my questions. According to the patient's this is very atypical for her baseline. MRI scheduled for later today of the brain; head CT from 11/23 was negative. Objective - Vital Signs Vital signs: Vital Signs Temp 98.1 F 11/25/24 08:09 Pulse 112 H 11/25/24 08:14 Resp 17 11/25/24 08:09 BP 105/71 11/25/24 08:09 Pulse Ox 96 11/25/24 08:09 FiO2 Intake & Output 11/24/24 11/25/24 11/25/24 18:59 06:59 18:59 Weight 50.802 kg Other: # Voids 2 - Constitutional General appearance: Present: thin - EENT Eyes: Present: EOMI, PERRLA ENT: Present: hearing grossly normal - Neck Neck: Absent: lymphadenopathy - Respiratory Respiratory: right: diminished, left: CTA - Cardiovascular Rhythm: regular - Integumentary Integumentary: Present: pale - Neurologic Neurologic: Present: CNII-XII intact - Psychiatric Psychiatric: Absent: A&O x's 3 (Patient slow to respond to questions; has some word finding difficulties. ), appropriate affect - Labs CBC & Chem 7: 11/25/24 03:36 11/24/24 10:04 Labs: Abnormal Lab Results - Last 24 Hours (Table) 11/24/24 11/25/24 Range/Units 10:04 03:36 WBC 15.0 H (3.8-10.6) k/uL RBC 2.63 L (3.80-5.40) m/uL Hgb 8.3 L (11.4-16.0) gm/dL Hct 26.0 L (34.0-46.0) % RDW 19.3 H (11.5-15.5) % Plt Count 55 L (150-450) k/uL Procalcitonin 3.02 H (0.02-0.50) ng/mL Microbiology - Last 24 Hours (Table) 11/23/24 13:45 Blood Culture - Preliminary Blood Assessment and Plan Assessment: The patient is a 64 year old female with a history of a metastatic non-small cell lung cancer of the right upper lung. She has recently been on chemo immunotherapy. She has completed 8 of 10 planned palliative radiotherapy treat ments to the right upper lobe. She was hospitalized on November 23 secondary to altered mental status and tachycardia. Plan: 1. AMS: MRI pending; need to rule out brain metastasis considering recent progression of non-small cell lung cancer. We will follow along for these results. 2. Right lung cancer: Patient is currently undergoing palliative radiation to the right upper lung. She has 2 additional planned treatments. Unfortunately, the patient was unable to complete her treatment today secondary to difficulty with pain. We will try to have the patient have premedication tomorrow prior to radiotherapy. Time with Patient: Less than 30
[2024-11-25 13:41] LABS: Appearance,Urine Clear (Clear); Bilirubin,Urine Negative (Negative); Blood,Urine Negative (Negative); Color,Urine Colorless; Glucose,Urine (UA) Negative (Negative); Ketones,Urine Negative (Negative); Leukocyte Esterase,Urine Negative (Negative); Nitrite,Urine Negative (Negative); PH, Urine 5.5 (5.0-8.0); Protein,Urine Negative (Negative); Specific Gravity,Urine 1.011 (1.001-1.035); Urobilinogen,Urine <2.0 mg/dL (<2.0)
[2024-11-25 14:30] LABS: Anisocytosis Slight; Basophils % (A) 0 %; Eosinophils # (A) 0.6 k/uL (0-0.7); Eosinophils % (A) 4 %; HCT 28.2 % (34.0-46.0); HGB 8.8 gm/dL (11.4-16.0); Hypochromasia Marked; Lymphocytes # (A) 0.5 k/uL (1.0-4.8); Lymphocytes % (A) 3 %; MCH 31.2 pg (25.0-35.0); MCHC 31.3 g/dL (31.0-37.0); MCV 99.9 fL (80.0-100.0); Macrocytosis Moderate; Mean Platelet Volume 9.1; Monocytes # (A) 0.6 k/uL (0-1.0); Monocytes % (A) 4 %; Neutrophils # (A) 13.1 k/uL (1.3-7.7); Neutrophils % (A) 87 %; RBC 2.82 m/uL (3.80-5.40); WBC 15.1 k/uL (3.8-10.6)
[2024-11-25 14:31] LABS: Platelet Count 57 k/uL (150-450)
[2024-11-25 14:34] LABS: African American GFR (CKD) 62 (>60 ml/min/1.73 sqM); Anion Gap 12 mmol/L; Blood Urea Nitrogen 42 mg/dL (7-17); Calcium 9.6 mg/dL (8.4-10.2); Carbon Dioxide 22 mmol/L (22-30); Chloride 102 mmol/L (98-107); Glucose 111 mg/dL (74-99); Non-African American GFR(CKD) 54 (>60 ml/min/1.73 sqM); Potassium 4.5 mmol/L (3.5-5.1); Sodium 136 mmol/L (137-145)
[2024-11-25] MEDS ORDERED: GABAPENTIN 300 MG CAP PO SCH (16:00)
[2024-11-25] MEDS: FAMOTIDINE 20 MG TAB PO SCH (22:37)
--- NOTE | 2024-11-25 23:22 | P.PN ---
Subjective Progress Note Date: 11/25/24 64-year-old pleasant female was sent in from radiation oncology because of altered mental status fever. Patient is found to have influenza patient does have white count patient also has acute renal failure with creatinine going up to 1.4. Patient's baseline creatinine is around 1. Patient was started on IV fluids and subsequently admitted. Chest x-ray showed hide infiltrate patient does have history of lung cancer this appears to be lung cancer mass. Urine analysis is not available at this time. Patient is on 2 L of oxygen usually does not wear any oxygen. Patient also saturating 100% on 2 L we will try and wean off oxygen. Patient is also on sustained-release and immediate release morphine's. Patient usually gets confused assessment is because of which her her is holding off all the sustained-release morphine. 11/25/2024 Patient resting in bed on the medical floor. Remains slightly confused not quite back to baseline. Noted to have increased peripheral edema today and shortness of breath. IV lasix x 1 20 mg was given. Chest xray reveals no suspicious acute pulmonary process. There is a right upper lobe mass present. Procalcitonin level 3.02. There is likely a mild post obstructive underlying bacterial pneumonia in addition to the acute influenza A. White blood cell count 15.1, hgb 8.8, sodium 136, BUN 42, creatinine 1.08. proBNP is mildly elevated at 1710. Urinalysis negative. Review of Systems Constitutional: Denied any fatigue denied any fever. Cardio vascular: denied any chest pain, palpitations Gastrointestinal: denied any nausea, vomiting, diarrhea Pulmonary: Denied any shortness of breath cough Neurologic denied any new focal deficits All inpatient medications were reviewed and appropriate changes in these medications as dictated in the interval history and assessment and plan. PHYSICAL EXAMINATION: GENERAL: The patient is alert and oriented x2, not in any acute distress. Well developed, well nourished. Fatigued. HEENT: Pupils are round and equally reacting to light. EOMI. No scleral icterus. No conjunctival pallor. Normocephalic, atraumatic. No pharyngeal erythema. No thyromegaly. CARDIOVASCULAR: S1 and S2 present. No murmurs, rubs, or gallops. PULMONARY: Chest is clear to auscultation, no wheezing or crackles. ABDOMEN: Soft, nontender, nondistended, normoactive bowel sounds. No palpable organomegaly. MUSCULOSKELETAL: No joint swelling or deformity. EXTREMITIES: No cyanosis, clubbing, or pedal edema. NEUROLOGICAL: Gross neurological examination did not reveal any focal deficits. SKIN: No rashes. Assessment and plan -Altered mental status secondary to toxic encephalopathy mostly because of morphine. Patient has acute renal failure which may be secondary to dehydration because of acute renal failure patient's morphine is probably not being metabolized her electrolytes or mental status will hold off on extended release will continue with as needed short-acting morphine so that patient does not have withdrawals and patient is not in pain. Hold of gabapentin. -Sepsis secondary to influenza -Secondary bacterial pneumonia likely postobstructive started on IV ceftriaxone -Acute renal failure prerenal ischemia secondary to dehydration. -Leukocytosis secondary to sepsis from influenza -non small cell lung cancer with reports of disease progression per oncology and patient was referred to oncology for possible clinical trials. Brain MRI ordered by oncology to rule out brain metastasis. -Rheumatoid arthritis history DVT prophylaxis: Subcutaneous heparin The impression and plan of care has been dictated by Mary Ibrahim, Nurse Practitioner as directed. Dr. Gm MD I have performed a history and physical examination and medical decision making of this patient, discussed the same with the dictator, and agree with the dictators assessment and plan as written, documented as a scribe. Based on total visit time, I have performed more than 50% of this visit. Objective - Vital Signs Vital signs: Vital Signs Temp 98.1 F 11/25/24 19:38 Pulse 88 11/25/24 22:22 Resp 18 11/25/24 19:38 BP 118/74 11/25/24 19:38 Pulse Ox 96 11/25/24 19:38 FiO2 Intake & Output 11/25/24 11/25/24 11/26/24 06:59 18:59 06:59 Weight 50.802 kg Other: # Voids 2 - Labs CBC & Chem 7: 11/25/24 13:58 11/25/24 13:58 Labs: Abnormal Lab Results - Last 24 Hours (Table) 11/25/24 11/25/24 11/25/24 Range/Units 03:36 13:58 13:58 WBC 15.0 H 15.1 H (3.8-10.6) k/uL RBC 2.63 L 2.82 L (3.80-5.40) m/uL Hgb 8.3 L 8.8 L (11.4-16.0) gm/dL Hct 26.0 L 28.2 L (34.0-46.0) % RDW 19.3 H 19.0 H (11.5-15.5) % Plt Count 55 L 57 L (150-450) k/uL Neutrophils # 13.1 H (1.3-7.7) k/uL Lymphocytes # 0.5 L (1.0-4.8) k/uL Sodium 136 L (137-145) mmol/L BUN 42 H (7-17) mg/dL Creatinine 1.08 H (0.52-1.04) mg/dL Glucose 111 H (74-99) mg/dL Microbiology - Last 24 Hours (Table) 11/23/24 13:45 Blood Culture - Preliminary Blood Assessment and Plan Time with Patient: Less than 30
[2024-11-26] MEDS: SODIUM CHLORIDE 0.9% 1,000 ML IV SCH (03:27)
[2024-11-26] MEDS: ONDANSETRON 4 MG TAB PO PRN (04:51)
[2024-11-26] MEDS: QUEtiapine 25 MG TAB PO PRN (10:51)
[2024-11-26] MEDS: LORazepam 2 MG/ML INJ IV STA ×2 (13:56→14:01)
[2024-11-26] MEDS ORDERED: LORazepam 2 MG/ML INJ IV PRN (15:00)
[2024-11-26] MEDS: DULoxetine HCL 30 MG CAPSULE.DR PO SCH (20:29)
[2024-11-26 21:33] LABS: Glucose,Whole Blood 103 mg/dL (70-110)
[2024-11-26] MEDS: QUEtiapine 25 MG TAB PO SCH (22:32)
[2024-11-26] MEDS: METOPROLOL TARTRATE 5 MG/5 ML VIAL IVP STA (23:01)
[2024-11-27 00:43] LABS: Glucose,Whole Blood 97 mg/dL (70-110)
[2024-11-27 01:46] VITALS: TEMP 98.3
--- NOTE | 2024-11-27 02:24 | XR ---
EXAM: XR Chest, 1 View CLINICAL HISTORY: ITS.REASON XR Reason: RR increased TECHNIQUE: Frontal view of the chest. COMPARISON: 11/25/2024 IMPRESSION: Right hilar mass again seen. No acute findings
--- NOTE | 2024-11-27 04:50 | P.PN ---
Subjective Progress Note Date: 11/26/24 64-year-old pleasant female was sent in from radiation oncology because of altered mental status fever. Patient is found to have influenza patient does have white count patient also has acute renal failure with creatinine going up to 1.4. Patient's baseline creatinine is around 1. Patient was started on IV fluids and subsequently admitted. Chest x-ray showed hide infiltrate patient does have history of lung cancer this appears to be lung cancer mass. Urine analysis is not available at this time. Patient is on 2 L of oxygen usually does not wear any oxygen. Patient also saturating 100% on 2 L we will try and wean off oxygen. Patient is also on sustained-release and immediate release morphine's. Patient usually gets confused assessment is because of which her her is holding off all the sustained-release morphine. 11/25/2024 Patient resting in bed on the medical floor. Remains slightly confused not quite back to baseline. Noted to have increased peripheral edema today and shortness of breath. IV lasix x 1 20 mg was given. Chest xray reveals no suspicious acute pulmonary process. There is a right upper lobe mass present. Procalcitonin level 3.02. There is likely a mild post obstructive underlying bacterial pneumonia in addition to the acute influenza A. White blood cell count 15.1, hgb 8.8, sodium 136, BUN 42, creatinine 1.08. proBNP is mildly elevated at 1710. Urinalysis negative. 11/26/2024 Patient is seen in follow-up continues to be lethargic but arousable, confused. at bedside per nursing staff has been requesting her medications be resumed as she was previously scheduled including FARM APPRAISER agents. This was explained multiple times given patient's mentation and lethargy, it is unsafe to continue to give narcotics and FARM APPRAISER agents given her mentation. Patient is scheduled to undergo MRI today of the brain to evaluate for metastasis as betty ent does have progression of cancer. Patient also scheduled to undergo radiation treatment with radiation oncology today. Patient was unable to tolerate yesterday while laying on the bed and did not receive radiation treatment. Patient is continued on antibiotics with concerns of postobstructive pneumonia and will continue for now. Review of Systems Constitutional: Denied any fatigue denied any fever. Cardio vascular: denied any chest pain, palpitations Gastrointestinal: denied any nausea, vomiting, diarrhea Pulmonary: Denied any shortness of breath cough Neurologic denied any new focal deficits All inpatient medications were reviewed and appropriate changes in these medications as dictated in the interval history and assessment and plan. PHYSICAL EXAMINATION: GENERAL: The patient is lethargic although arousable, alert and oriented x2. Well developed, elderly appearing, ill-appearing fatigued. HEENT: Pupils are round and equally reacting to light. EOMI. No scleral icterus. No conjunctival pallor. Normocephalic, atraumatic. No pharyngeal erythema. No thyromegaly. CARDIOVASCULAR: S1 and S2 muffled, tachy PULMONARY: Diminished breath sounds bilaterally otherwise chest is clear to auscultation, no wheezing or crackles. ABDOMEN: Soft, thin, nontender, nondistended, normoactive bowel sounds. No palpable organomegaly. MUSCULOSKELETAL: No joint swelling or deformity. EXTREMITIES: No cyanosis, clubbing, or pedal edema. NEUROLOGICAL: Gross neurological examination did not reveal any focal deficits. Diffusely weak SKIN: No rashes. Assessment: -Altered mental status secondary to toxic encephalopathy mostly because of morphine. Patient has acute renal failure which may be secondary to dehydration because of acute renal failure patient's morphine is probably not being metabolized her electrolytes or mental status will hold off on extended release will continue with as needed short-acting morphine so that patient does not have withdrawals and patient is not in pain. Hold off gabapentin. -Sepsis secondary to influenza -Secondary bacterial pneumonia likely postobstructive, continue on IV ceftriaxone -Acute renal failure prerenal ischemia secondary to dehydration, improving -Leukocytosis secondary to sepsis from influenza -non small cell lung cancer with reports of disease progression per oncology and patient was referred to oncology for possible clinical trials. Brain MRI ordered by oncology to rule out brain metastasis. -Rheumatoid arthritis history DVT prophylaxis: Subcutaneous heparin GI prophylaxis Full code Plan: Patient is scheduled to undergo MRI of the brain today with oncology following. Mentation is not back to baseline and patient is lethargic at times and somewhat confused although will answer questions appropriately. is demanding her gabapentin be resumed as scheduled and this was explained multiple times given her kidney functions as well as mentation this will be held at this time Patient also scheduled for possible radiation treatment with Dr. Roche radiation oncology today as patient was going yesterday although unable to tolerate laying on the table due to pain. Recommend repeat labs to monitor kidney functions and electrolytes. Replace electrolytes per protocol. The impression and plan of care has been dictated by Geraldine Vigil, Nurse Practitioner as directed. Dr. Gm MD I have performed a history and physical examination and medical decision making of this patient, discussed the same with the dictator, and agree with the dictators assessment and plan as written, documented as a scribe. Based on total visit time, I have performed more than 50% of this visit. Objective - Vital Signs Vital signs: Vital Signs Temp 97.6 F 11/26/24 07:00 Pulse 89 11/26/24 08:45 Resp 17 11/26/24 07:00 BP 148/88 11/26/24 07:00 Pulse Ox 98 11/26/24 07:00 FiO2 Intake & Output 11/25/24 11/26/24 11/26/24 18:59 06:59 18:59 Intake Total 120 Balance 120 Intake: Oral 120 Other: # Voids 2 2 - Labs CBC & Chem 7: 11/25/24 13:58 11/25/24 13:58 Labs: Abnormal Lab Results - Last 24 Hours (Table) 11/25/24 11/25/24 Range/Units 13:58 13:58 WBC 15.1 H (3.8-10.6) k/uL RBC 2.82 L (3.80-5.40) m/uL Hgb 8.8 L (11.4-16.0) gm/dL Hct 28.2 L (34.0-46.0) % RDW 19.0 H (11.5-15.5) % Plt Count 57 L (150-450) k/uL Neutrophils # 13.1 H (1.3-7.7) k/uL Lymphocytes # 0.5 L (1.0-4.8) k/uL Sodium 136 L (137-145) mmol/L BUN 42 H (7-17) mg/dL Creatinine 1.08 H (0.52-1.04) mg/dL Glucose 111 H (74-99) mg/dL Microbiology - Last 24 Hours (Table) 11/23/24 13:45 Blood Culture - Preliminary Blood
[2024-11-27 05:37] VITALS: BP 104/46; PULSE 71; RESP 44
[2024-11-27] MEDS ORDERED: EPINEPHrine 10 ML SYRINGE (0.1 MG/ML) ONE (07:24)
[2024-11-27 07:25] LABS: Glucose,Whole Blood 105 mg/dL (70-110)
[2024-11-27 07:30] LABS: Anisocytosis Slight; Basophils % (A) 0 %; Eosinophils # (A) 0.2 k/uL (0-0.7); Eosinophils % (A) 2 %; HCT 28.5 % (34.0-46.0); HGB 8.7 gm/dL (11.4-16.0); Hypochromasia Marked; Lymphocytes # (A) 0.8 k/uL (1.0-4.8); Lymphocytes % (A) 6 %; MCH 31.6 pg (25.0-35.0); MCHC 30.6 g/dL (31.0-37.0); MCV 103.3 fL (80.0-100.0); Macrocytosis Marked; Mean Platelet Volume 11.3; Monocytes # (A) 0.6 k/uL (0-1.0); Monocytes % (A) 5 %; Neutrophils # (A) 11.5 k/uL (1.3-7.7); Neutrophils % (A) 84 %; RBC 2.76 m/uL (3.80-5.40); RDW 19.7 % (11.5-15.5); WBC 13.7 k/uL (3.8-10.6)
[2024-11-27 07:35] LABS: African American GFR (CKD) 34 (>60 ml/min/1.73 sqM); Anion Gap 15 mmol/L; Blood Urea Nitrogen 55 mg/dL (7-17); Calcium 10.4 mg/dL (8.4-10.2); Carbon Dioxide 19 mmol/L (22-30); Chloride 105 mmol/L (98-107); Glucose 89 mg/dL (74-99); Non-African American GFR(CKD) 30 (>60 ml/min/1.73 sqM); Potassium 5.6 mmol/L (3.5-5.1); Sodium 139 mmol/L (137-145)
[2024-11-27] MEDS ORDERED: MORPHINE SULFATE 4 MG/ML SYRINGE IVP STA (07:36)
[2024-11-27 07:48] LABS: Platelet Count 30 k/uL (150-450)
[2024-11-27] MEDS: NOREPINEPHRINE 4 MG in SODIUM CHLORIDE 0.9% 250 ML IV SCH (07:58)
[2024-11-27] MEDS ORDERED: MEGESTROL 40 MG TAB PO SCH (09:00)
--- NOTE | 2024-11-27 15:32 | P.DS ---
Providers Date of admission: 11/23/24 22:39 Expected date of discharge: 11/27/24 Attending physician: Alexa Cortes Consults: 11/23/24 22:37 Consult Physician Routine Consulting Provider: Colin Avina Consult Reason/Comments: metastatic lung cancer patient Do you want consulting provider notified?: Yes 11/24/24 12:53 Consult Physician Routine Consulting Provider: El Roche Consult Reason/Comments: Lung cancer radiation Do you want consulting provider notified?: Yes 11/26/24 21:57 Consult Physician Routine Consulting Provider: Martin Atwood Consult Reason/Comments: Tachycardia Do you want consulting provider notified?: Yes Primary care physician: Stated None Hospital Course: Preliminary cause of Non-small cell lung carcinoma with disease progression Final diagnosis -Altered mental status, likely secondary to toxic encephalopathy mostly because of morphine and other narcotic medications. -Sepsis secondary to influenza -Secondary bacterial pneumonia likely postobstructive, continue on IV ceftriaxone -Acute renal failure prerenal ischemia secondary to dehydration, improving -Leukocytosis secondary to sepsis from influenza -non small cell lung cancer with reports of disease progression per oncology -COPD, not in exacerbation -Rheumatoid arthritis history DVT prophylaxis GI prophylaxis Full code Discharge disposition Patient has . According to nursing documentation, time of was 804 11/27/2024. Total time taken is greater than 35 minutes. Hospital course This is a 64-year-old female who was recently admitted with increasing shortness of breath with altered mentation being closely monitored. Patient likely with toxic encephalopathy from multiple pain medications including oxycodone's, morphine, gabapentin. Patient also found to be influenza A positive. Per patient her had influenza 1 week prior and started developing symptoms with increasing lethargy and shortness of breath. Patient does have an e xtensive history of non-small cell lung carcinoma undergoing radiation treatment palliatively for disease progression. MRI was scheduled for the brain and pending into further treatments of radiation to complete this week although patient was unable to tolerate due to her significant pain. Patient remained confused and extremely lethargic, not eating, noted to be having increasing heart rates and unable to take her medications due to not tolerating anything oral and noted to have elevated heart rates. Patient was initially transferred to 3 for IV Lopressor for rate control with minimal improvement. Patient was found to be having agonal respirations with continued ongoing heart rates into the 140s and in a team was called. ICU nurses arrived and called a code and started CPR. Patient was intubated and brought to the ICU lost a pulse and CPR resumed and gained a pulse again and it was recommended cardiovert. was contacted and informed nursing staff that patient would not have wanted all these invasive interventions and made the patient no code. Patient at 0804 on 11/27/2024. Please refer to other consultation notes and code notes for further HPI. The impression and plan of care has been dictated by Geraldine Vigil, Nurse Practitioner as directed. Dr. Gm MD I have performed a history and examination and MDM of this patient, discussed the same with the dictator, and agree with the dictator's assessment and plan as written ,documented as a scribe. Based on total visit time, I have performed more than 50% of the visit. Patient Condition at Discharge: Poor Plan - Discharge Summary New Discharge Prescriptions: No Action Albuterol Inhaler [Ventolin Hfa Inhaler] 1 - 2 puff INHALATION RT-Q6H PRN PRN Reason: Shortness Of Breath Folic Acid 1 mg PO DAILY Ondansetron [Zofran] 4 mg PO Q4H PRN PRN Reason: Nausea Metoprolol Succinate (ER) [Toprol XL] 50 mg PO BID 30 Days #60 tab Ipratropium-Albuterol Nebulize [Duoneb 0.5 mg-3 mg/3 ml Soln] 3 ml INHALATION QID 30 Days #120 ml Docusate [Colace] 100 mg PO DAILY polyethylene glycoL 3350 [Miralax] 17 gm PO DAILY Codeine 30 mg PO Q8H PRN PRN Reason: Cough oxyCODONE HCL [oxyCODONE HCL (IR)] 15 - 30 mg PO Q4H PRN PRN Reason: Pain oxyCODONE HCL [OxyCONTIN] 30 mg PO BID Gabapentin 300 mg PO TID Discharge Medication List Albuterol Inhaler [Ventolin Hfa Inhaler] 1 - 2 puff INHALATION RT-Q6H PRN 11/06/24 [History] Codeine 30 mg PO Q8H PRN 11/06/24 [History] Docusate [Colace] 100 mg PO DAILY 11/06/24 [History] Folic Acid 1 mg PO DAILY 11/06/24 [History] Ondansetron [Zofran] 4 mg PO Q4H PRN 11/06/24 [History] oxyCODONE HCL [oxyCODONE HCL (IR)] 15 - 30 mg PO Q4H PRN 11/06/24 [History] polyethylene glycoL 3350 [Miralax] 17 gm PO DAILY 11/06/24 [History] Ipratropium-Albuterol Nebulize [Duoneb 0.5 mg-3 mg/3 ml Soln] 3 ml INHALATION QID 30 Days #120 ml 11/13/24 [Rx] Metoprolol Succinate (ER) [Toprol XL] 50 mg PO BID 30 Days #60 tab 11/13/24 [Rx] Gabapentin 300 mg PO TID 11/24/24 [History] oxyCODONE HCL [OxyCONTIN] 30 mg PO BID 11/24/24 [History] Follow up Appointment(s)/Referral(s): Ashvin Curry MD [REFERRING] - 1-2 Days Naomi Cadet MD [STAFF PHYSICIAN] - 12/14/24 3:30 pm Discharge Disposition: - Preliminary Cause of Preliminary Cause of : Non-small cell lung carcinoma
== END 2024-11-27 10:17 | disposition expired | DRG 871 ==
LOC: EC 12:52 → 5NMEDONC 22:39 → 4SSUR 11-24 05:08 → 3SCARD 11-26 22:41 → 2SICU 11-27 07:38
PROVIDERS: ADMIT Hospitalist; ATTEND Hospitalist
PROC: 5A12012 Performance of Cardiac Output, Single, Manual (ICD-10-PCS; principal; 2024-11-27)
PROC: 0BH18EZ Insertion of Endotracheal Airway into Trachea, Via Natural or Artificial Opening Endoscopic (ICD-10-PCS; principal; 2024-11-27)
PROC: 5A1935Z Respiratory Ventilation, Less than 24 Consecutive Hours (ICD-10-PCS; principal; 2024-11-27)
PROC: DB021ZZ Beam Radiation of Lung using Photons 1 - 10 MeV (ICD-10-PCS; 2024-11-27)
DX: A41.89 Other specified sepsis (principal); G92.9 Unspecified toxic encephalopathy; J10.08 Influenza due to other identified influenza virus with other specified pneumonia; J15.9 Unspecified bacterial pneumonia; C79.9 Secondary malignant neoplasm of unspecified site; C34.2 Malignant neoplasm of middle lobe, bronchus or lung; I47.10 Supraventricular tachycardia, unspecified; E86.0 Dehydration; J44.0 Chronic obstructive pulmonary disease with (acute) lower respiratory infection; M06.9 Rheumatoid arthritis, unspecified; N17.9 Acute kidney failure, unspecified; I46.9 Cardiac arrest, cause unspecified; Z99.81 Dependence on supplemental oxygen; I95.9 Hypotension, unspecified; Z79.899 Other long term (current) drug therapy; Z87.891 Personal history of nicotine dependence; Z79.891 Long term (current) use of opiate analgesic; T40.2X5A Adverse effect of other opioids, initial encounter
CPT/HCPCS: 36415; 70450; 71045; 71046; 77387; 77412; 80048; 80053; 81003; 82140; 83605; 83880; 84145; 84484; 85025; 85027; 85610; 85730; 87040; 87636; 92950; 93005; 94002; 94640; 96361; 96365; 99291